=== PATIENT | male | born 1980 | race Caucasian/White ===

== ENCOUNTER 2020-08-15 15:21 | Outpatient (CLI) | payer BC, SELFPAY ==
[2020-08-15 15:47] LABS: Basophils Percent Auto 0.5 % (0.2-1.2); Eosinophils Percent Auto 0.5 % (0-4.4); Hematocrit 43.8 % (42.0-52.0); Hemoglobin 13.9 g/dL (14.0-18.0); Immature Granulocyte Absolute 0.03 K/mm3 (0.00-0.031); Immature Granulocyte Percent A 0.4 % (0-0.5); Lymphocytes Absolute Auto 1.62 K/mm3 (0.9-3.2); Lymphocytes Percent Auto 20.3 % (18.3-44.2); Mean Corpuscular HGB Conc 31.7 g/dl (32-36); Mean Corpuscular Hemoglobin 27.4 pg (26-34); Mean Corpuscular Volume 86.4 fl (80-100); Mean Platelet Volume 10.7 fl (7.4-10.4); Monocytes Absolute Auto 0.4 K/mm3 (0.1-0.6); Monocytes Percent Auto 5.1 % (2.6-8.5); Neutrophils Absolute Auto 5.8 K/mm3 (1.3-6.7); Neutrophils Percent Auto 73.2 % (45.5-73.1); Platelet Count Result 189 k/mm3 (150-375); Red Blood Count 5.07 M/mm3 (4.6-6.20); Red Cell Distribution Width 14.3 % (11.5-14.5)
[2020-08-15 15:59] LABS: Hemoglobin A1C 13.1 % (<5.7)
[2020-08-15 16:27] LABS: Alanine Aminotransferase 34 U/L (4-50); Albumin Level 4.4 g/dL (3.5-5.1); Alkaline Phosphatase 129 U/L (38-126); Anion Gap 17 mmol/L (8-16); Aspartate Amino Transferase 37 U/L (17-59); Bilirubin,Total 0.8 mg/dL (0.2-1.3); Blood Urea Nitrogen 16 mg/dL (9-20); Calcium 9.7 mg/dL (8.4-10.2); Carbon Dioxide 19 mmol/L (22-30); Chloride 92 mmol/L (98-107); Estimated Glomerular Filt Rate > 60; Glucose 773 mg/dL (75-110); Potassium 4.7 mmol/L (3.4-5.0); Sodium 128 mmol/L (137-145)
== END 2020-08-15 15:22 | disposition home or self-care (01) ==
LOC: ANHLAB 15:22
PROVIDERS: PCP Family Medicine; Visit Provider Nurse Practitioner Family
DX: R35.0 Frequency of micturition (principal); R63.8 Other symptoms and signs concerning food and fluid intake; R81 Glycosuria; I10 Essential (primary) hypertension
CPT/HCPCS: 36415; 80053; 83036; 84443; 85025

== ENCOUNTER 2023-07-27 18:34 | Inpatient (IN) | payer BC, SELFPAY ==
[2023-07-27] VITALS (9 sets, daily range): BP systolic 92–116; BP diastolic 40–74; PULSE 80–92; RESP 16–24; TEMP 36.6; O2SAT 99–100
--- NOTE | ~2023-07-27 | US_ITS ---
Limited Abdominal Sonogram: Real-time sonographic imaging of the right upper quadrant was performed. Clinical History: Pancreatitis Findings: The liver appears echogenic, with no evidence of mass lesion or bile duct dilatation. Main portal vein demonstrates normal direction of flow. The gallbladder is well distended, and appears no rmal with no evidence of gallstone or wall thickening. The common bile duct measures 7 mm. The visua lized pancreas, aorta, and IVC are unremarkable. Impression: Diffuse fatty infiltration of the liver. Reviewed, dictated and finalized at location M. R RESOURCE ENGINEER Impression: Diffuse fatty infiltration of the liver.
--- NOTE | ~2023-07-27 | US_ITS ---
Renal-Bladder ultrasound Clinical History: Renal failure Technique: Real-time sonographic imaging of the kidneys and urinary bladder was performed. Findings: The right kidney measures 10.2 cm in length and the left kidney measures 10.1 cm. There is no hydronephrosis or renal calculus identified. Renal cortical echogenicity is within normal limits. No renal mass lesion is identified. The urinary bladder is collapsed around a Arthur catheter. Impression: Unremarkable ultrasound of the kidneys. Collapsed urinary bladder limits evaluation. Reviewed, dictated and finalized at location M. [employer] Impression: Unremarkable ultrasound of the kidneys. Collapsed urinary bladder limits evaluation.
--- NOTE | ~2023-07-27 | XR_ITS ---
EXAMINATION: XR chest 1V portable Exam Date/Time: 07/27/2023 20:27 POWER PLANT TECHNICIAN HISTORY: sob Comparison: None. RESULT: Lines, tubes, and devices: None. Lungs and pleura: Clear. Cardiomediastinal silhouette: Unremarkable. Other: No acute osseous or upper abdominal finding. IMPRESSION: No acute cardiopulmonary process. Reviewed, dictated and finalized at location K. R PLANT TECHNICIAN
--- NOTE | ~2023-07-27 | CT_ITS ---
EXAMINATION: CT abdomen pelvis wo con DATE: 07/27/2023 21:44 INDICATION: lower abd pain, leukocytosis, arf, diarrhea TECHNIQUE: Computed tomography (CT) of the abdomen and pelvis was performed without intravenous contr ast. Automated exposure control and iterative reconstruction technique were employed. The dose-length product was 1606.51 mGy-cm. COMPARISON: None. FINDINGS: Lower thorax: Unremarkable Liver: Normal. Biliary/Gallbladder: Dilated gallbladder with slightly hyperdense content, no visible stones. Minimal surrounding inflammatory change. No bile duct dilation. Pancreas: Mild inflammatory change surrounding the pancreas. Spleen: Normal. Adrenals:No mass. Kidneys: Punctate nonobstructing bilateral calculi. No suspicious mass, obstructing stone, or hydrone phrosis. GI tract: No small or large bowel dilation. Appendix not confidently visualized, likely surgically ab sent. Mesentery/Peritoneum: No ascites, mass, or free air. Retroperitoneum: No mass. Pelvis: Pelvic organs are within normal limits. Soft Tissues: Soft tissues and body wall unremarkable. Bones: No acute osseous finding. IMPRESSION: Gallbladder hydrops. Peripancreatic inflammation, may represent pancreatitis in the appropriate clinical context. Reviewed, dictated and finalized at location K. GER SPANISH IMPRESSION: Gallbladder hydrops. Peripancreatic inflammation, may represent pancreatitis in the appropriate clin ical context.
[2023-07-27 19:57] LABS: Basophils Percent Auto 0.3 % (0.2-1.2); Eosinophils Percent Auto 0.1 % (0-4.4); Hematocrit 42.8 % (42.0-52.0); Hemoglobin 12.3 g/dL (14.0-18.0); Immature Granulocyte Absolute 0.17 K/mm3 (0.00-0.031); Immature Granulocyte Percent A 1.1 % (0-0.5); Lymphocytes Percent Auto 8.7 % (18.3-44.2); Mean Corpuscular HGB Conc 28.7 g/dl (32-36); Mean Corpuscular Hemoglobin 25.8 pg (26-34); Mean Corpuscular Volume 89.7 fl (80-100); Mean Platelet Volume 9.9 fl (7.4-10.4); Monocytes Percent Auto 6.9 % (2.6-8.5); Neutrophils Absolute Auto 12.3 K/mm3 (1.3-6.7); Neutrophils Percent Auto 82.9 % (45.5-73.1); Nucleated Red Blood Cells Perc 0.3 % (0.0-0.2); Platelet Count Result 267 k/mm3 (150-375); Red Blood Count 4.77 M/mm3 (4.6-6.20); Red Cell Distribution Width 16.2 % (11.5-14.5); White Blood Count 14.9 K/mm3 (4.5-10.0)
[2023-07-27 20:13] LABS: Alanine Aminotransferase 27 U/L (6-50); Albumin Level 3.9 g/dL (3.5-5.1); Alkaline Phosphatase 97 U/L (38-126); Aspartate Amino Transferase 37 U/L (17-59); Bilirubin,Total 0.5 mg/dL (0.2-1.3); Blood Urea Nitrogen 86 mg/dL (9-20); Calcium 8.4 mg/dL (8.4-10.2); Carbon Dioxide < 5 mmol/L (22-30); Chloride 105 mmol/L (98-107); Estimated CRCL calculation 18 ml/min; Estimated Glomerular Filt Rate 8; Glucose 196 mg/dL (65-110); Potassium 6.6 mmol/L (3.4-5.0); Sodium 137 mmol/L (137-145)
[2023-07-27 20:20] LABS: Burr Cells 1+ (NORMAL); Large Platelets Present; Platelet Clumps Present; Platelet Estimate Adequate (Adequate); Schistocytes None Seen (NORMAL)
--- NOTE | 2023-07-27 20:20 | ED.NAVMDI ---
HPI - Nausea/Vomiting/Diarrhea General Chief complaint: Nausea/Vomiting/Diarrhea Stated complaint: WEAKNESS Time Seen by Provider: 07/27/23 19:44 Source: patient Mode of arrival: ambulatory Limitations: no limitations History of Present Illness HPI Narrative: Patient is a 42 y/o male who presents to the ED with c/o diarrhea. Reports having persistent diarrhea since Friday. He reported having multiple episodes per day Friday and Friday, reports last episode today around 1pm. Denies rectal bleeding or melena. He states he feels very weak and dehydrated. He also reports lower abdominal pain, nausea, decreased appetite, shortness of breath, heavy breathing, oliguria. Denies known fevers. Denies chest pain. at bedside reports patient has been ozempic for the last 1 month for weight loss. Switch to Mounjaro last week. He does have Hx of DM, BG's have been around 160s the last couple days. Related Data Home Medications Medication Instructions Recorded Confirmed lisinopril 40 mg tablet 45 mg PO DAILY 07/28/23 07/28/23 Allergies Allergy/AdvReac Type Severity Reaction Status Date / Time No Known Allergies Allergy Mild Unverified 05/27/23 14:40 Review of Systems Review of Systems: CONSTITUTIONAL: Denies fever, chills, or sweats. ENT: Denies rhinorrhea, congestion, sore throat. CARDIOVASCULAR: Denies chest pain. RESPIRATORY: See HPI. GASTROINTESTINAL: See HPI. GENITOURINARY: Denies dysuria or hematuria. MUSCULOSKELETAL: Denies back pain, joint pain, or myalgia. All systems reviewed & are unremarkable except as noted in HPI and below PMFSH Family History Family History Father Hypertension Mother Hypertension Social History Social History Smoking status: Never smoker Second hand tobacco smoke exposure: No Alcohol intake: former Substance use: never Substance use type: does not use Lack of Transportation: No Lack of Food: Never True Current Housing: I Have Housing Concerned About Future Housing: No Difficulty Paying Gas/Electric Bills: No Difficulty Paying for Meds: No Currently Unemployed: No Education: High School Diploma/GED Difficulty w/ Childcare or Family Care: No Living arrangements: with family Occupation/Education: occupation Gender identity (if verbalized by the patient): Male Spiritual care concerns: No Exam Narrative: GENERAL: Ill/toxic/uncomfortable appearing, morbidly obese with BMI of 54.9. HEAD: Normocephalic, atraumatic. ENT: MMs profoundly dry. NECK: Supple. No adenopathy, no masses. RESPIRATORY: Airway patent, respirations tachypneic and shallow. Clear to auscultation bilaterally, no rales, rhonchi, wheezing. No focal lung sounds. CARDIOVASCULAR: Borderline tachycardic with regular rhythm without murmurs, rubs, or gallops. Peripheral pulses 2+ and equal bilaterally. ABDOMINAL: Soft, tenderness across lower abdomen, nondistended, no hepatosplenomegaly. Normoactive BS. MUSCULOSKELETAL: Moves all extremities. Strength/ROM intact without gross deformities. No lower extremity edema. SKIN: Warm, dry, normal color. No rashes. NEURO: A&O X3. Able to answer questions but does appear weak and fatigued. Speech clear. Cranial nerves II-XII grossly intact. No ataxic movements. PSYCHIATRIC: Appropriate mood and affect. Normal interaction. Course Vital Signs Vital signs: Vital Signs Temperature 97.9 F 07/27/23 18:35 Pulse Rate 92 07/27/23 18:35 Respiratory Rate 24 H 07/27/23 18:35 Blood Pressure 116/57 L 07/27/23 18:35 Pulse Oximetry 100 07/27/23 18:35 Oxygen Delivery Room Air 07/27/23 18:35 Temperature 97.9 F 07/27/23 18:35 Pulse Rate 96 07/28/23 02:00 Respiratory Rate 19 07/28/23 02:00 Blood Pressure 107/62 07/28/23 02:00 Pulse Oximetry 100 07/28/23 02:00 Oxygen Delivery Room Air 07/27/23
--- NOTE | 2023-07-27 20:22 | ECG_ITS ---
Measurements Intervals [place] Rate: 81 P: 49 ID: [id number] QRS: -1 QRSD: 124 T: 37 QT: 394 QTc: 459 Interpretive Statements SINUS RHYTHM WITH FIRST DEGREE AV BLOCK DELAYED PRECORDIAL R/S TRANSITION CANNOT RULE OUT SEPTAL INFARCT, AGE INDETERMINATE BORDERLINE ECG NO PREVIOUS ECG AVAILABLE FOR COMPARISON Electronically Signed On 07-28-2023 6:23:37 JACK PRIZER by Blayne Spring D.O.
[2023-07-27 20:31] LABS: Appearance Urine Turbid (Clear); Bacteria Urine None Seen /hpf; Bilirubin Urine Negative (Negative); Blood Urine 3+ (Negative); Calcium Oxalate Crystals Urine Present /hpf; Color Urine Yellow (Yellow); Glucose Urine UA Negative (Negative); Hyaline Casts Urine Present /lpf; Ketones Urine Negative (Negative); Leukocyte Esterase Ur 2+ LEU/UL (Negative); Need Manual Microscopic Reviewed; Nitrate Urine Negative (Negative); Non Pathogenic Casts >20; Protein Urine 2+ mg/dL (Negative); RBC Urine 21-50 /hpf (0-2); Squamous Epithelial Cell Urine Moderate /hpf (Few); Urobilinogen Urine 0.2 mg/dL (<2.0); WBC Clumps Urine Present /HPF; WBC Urine >100 /hpf; White Blood Cell Casts Urine Present /lpf
[2023-07-27 20:34] LABS: Add Urine Microscopic? YES
[2023-07-27] MEDS: DEXTROSE 50% 25 GM/50 ML SYRINGE IV PUSH (20:36)
[2023-07-27 20:39] LABS: Magnesium 3.2 mg/dL (1.6-2.3)
[2023-07-27] MEDS: INSULIN HUMAN REGULAR (*BKC) 100 UNITS/ML 10 UNITS IV PUSH (20:41)
[2023-07-27] MEDS: CALCIUM GLUCONATE 1,000 MG/10 ML VIAL 1000 MG IV PUSH (20:45)
[2023-07-27] MEDS: SODIUM CHLORIDE 0.9% IV 1,000 ML 999 ML IV CONT ×3 (20:58→22:37)
[2023-07-27 21:12] LABS: NT Pro B Type Natriuretic Pept 860 pg/mL (19.9-100)
[2023-07-27 21:12] LABS: Alveolar/Arterial O2 Gradient 9.9 mmHg; Carboxyhemoglobin 0.6 % THb (0-2.0); Fractional Inspired Oxygen 21 %; HCO3 ABG 3.8 mEq/l (22.0-26.0); Methemoglobin ABG 0.1 %THb (0-1.5); Oxygen Content ABG 17.4 %vol (16.0-22.0); Oxygen Saturation ABG 95.4 % (95.0-100.0); PO2 ABG 118.2 mmHg (80.0-100.0); PO2 FiO2 Ratio Arterial Blood 5.63 %; Reduced Hemoglobin 2.3 %THb (0-5.0); Total Hemoglobin 12.6 g/dL (12.0-18.0)
[2023-07-27 21:14] LABS: Lipase 4329 U/L (23-300)
[2023-07-27 21:14] LABS: Device ROOM AIR; Modified Allen's Test Pass; PCO2 ABG 18.1 mmHg (35.0-45.0); Site Drawn RIGHT RADIAL; pH ABG 6.941 (7.350-7.450)
[2023-07-27 21:27] LABS: Lactic Acid Reflex 0.9 mmol/L (0.7-2.0)
--- NOTE | 2023-07-27 21:38 | PC.NURSE ---
Pt to CT at this time.
[2023-07-27 22:35] LABS: Glucose Point of Care 170 mg/dl (65-105)
[2023-07-27 22:45] LABS: Influenza A QL RT-PCR Negative (Negative); Influenza B QL RT-PCR Negative (Negative); SARS-CoV-2 RNA PCR Positive (Negative)
--- NOTE | 2023-07-27 23:09 | PC.NURSE ---
Pt is a hard stick, multiple attempts for blood cultures by this RN and tech. Phlebotomy called.
[2023-07-27] MEDS: SODIUM BICARBONATE 8.4% 50 MEQ/50 ML SYRINGE IV PUSH ×2 (23:44)
[2023-07-27] MEDS: cefTRIAXone 2 GM/NS 100 ML 2 GM/100 ML BAG IVPB (23:50)
--- NOTE | 2023-07-27 23:55 | PC.NURSE ---
Received Bicarb drip from pharmacy and bag was punctured in tube system. Contacted Renetta in pharmacy to acquire new bag.
[2023-07-28] VITALS (16 sets, daily range): BP systolic 93–124; BP diastolic 46–73; PULSE 88–108; RESP 15–24; TEMP 36.4–37.3; O2SAT 96–100; BMI 55.6
[2023-07-28 00:11] LABS: INR 1.3; Partial Thromboplastin Time 22.6 SECONDS (22.3-36.8); Prothrombin Time 17.3 Seconds (11.1-14.7)
[2023-07-28] MEDS: metroNIDAZOLE 500 MG/ISO 100ML 500 MG/100 ML BAG 100 MG IVPB ×4 (00:18→23:11)
[2023-07-28] MEDS: SODIUM BICARBONATE 8.4% 150 MEQ in WATER, STERILE FOR INJECTION 950 ML 125 MEQ IV CONT ×3 (00:19→18:40)
[2023-07-28 00:23] LABS: Blood Urea Nitrogen 84 mg/dL (9-20); Calcium 7.6 mg/dL (8.4-10.2); Carbon Dioxide < 5 mmol/L (22-30); Chloride 109 mmol/L (98-107); Estimated CRCL calculation 19 ml/min; Estimated Glomerular Filt Rate 8; Glucose 169 mg/dL (65-110); Sodium 137 mmol/L (137-145); Triglycerides 374 mg/dL (<150)
[2023-07-28 00:30] LABS: Potassium 6.7 mmol/L (3.4-5.0)
[2023-07-28 01:02] LABS: Troponin I 0.183 ng/mL (0.000-0.034)
[2023-07-28] MEDS: ALBUTEROL SULFATE NEB 2.5 MG/3 ML INH 10 MG INHALATION (01:12)
--- NOTE | 2023-07-28 01:29 | ADMGEN ---
This patient, Bucky Flynn, was admitted to Intensive Care Unit-7. Patient/family oriented to hospital policies and general routines including ID bracelet, bed and alarms, visiting hours, pain management, procedures, bathroom and other care routines, personal items, smoking policy, room service/diet, and visiting hours. Information on how to activate the Rapid Response Team has been discussed. Patient/Family are encouraged to report perceived risks to care and to ask questions if they do not understand what they are told or what they should do.
[2023-07-28] MEDS: CALCIUM GLUC 1,000 MG/NS 50 ML 1,000 MG/50 ML BAG 100 MG IVPB (01:33)
[2023-07-28] MEDS: DEXTROSE 50% 25 GM/50 ML SYRINGE IV PUSH (01:34)
[2023-07-28] MEDS: SODIUM BICARBONATE 8.4% 50 MEQ/50 ML SYRINGE 100 MEQ IV PUSH ×2 (01:34→08:08)
[2023-07-28] MEDS: INSULIN HUMAN REGULAR (*BKC) 100 UNITS/ML 10 UNITS IV PUSH (01:36)
--- NOTE | 2023-07-28 01:56 | PM.IMHP ---
H&P: HPI History of Present Illness Date/Time: 07/28/23 01:15 Chief Complaint: Diarrhea for 2 days Narrative: 42-year-old male with a past medical history of morbid obesity, type 2 diabetes, GERD, essential hypertension and hypertriglyceridemia who presented to the ER with 2 days of diarrhea. Patient reports that he started on Mounjaro 2 weeks ago. He was due to re-dose himself on Friday but did not give himself a dose due to already having diarrhea. He reports that he did not have diarrhea the entire 1st week in only developed on the day he was supposed to give his 2nd dose. He reports numerous episodes of watery diarrhea on Friday and Friday. His last bowel movement was around 13:00 on Friday. He has noticed decreased urine output in is only voided 3 times a day 2 of which were after he had already received IV fluids in the ER. He denies any recent travel. He denies any recent antibiotic use. He has been having generalized abdominal pain. He denies any black or bloody stools. He has been having chills with subjective fevers. He reports absolutely no vomiting but some severe nausea. He has biggest complaint at this time is that his mouth is dry and he wants something to drink. He has been lightheaded and feeling weak. Patient reports that he had been prescribed Ozempic last month but never got it as they were out of supply and was switched to Mounjaro. Review of Systems Review of Systems: 12 systems were reviewed with pertinent positives and negatives per HPI. Except as documented in the HPI, all other systems were reviewed and are negative. He denies history of snoring. He has never been tested for sleep apnea. [facility] Past Medical History Medical History (Updated 07/28/23 @ 05:42 by Ирина Cai DO) Essential hypertension Hyperlipemia Morbid obesity with BMI of 50.0-59.9, adult Type 2 diabetes mellitus Surgical History Surgical History (Updated 07/28/23 @ 05:24 by Ирина Cai DO) No history of previous surgery Family History Family History (Updated 07/28/23 @ 05:27 by Ирина Cai DO) Father Hypertension Mother Hypertension Lymphoma Social History Social History (Updated 07/28/23 @ 05:28 by Ирина Cai DO) Social History: The patient lives with his of 19 years. They have 2 sons below the age of 18. He drinks alcohol on occasion in in moderation. He is a lifelong nonsmoker. He denies illicit substance use. 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 Code status: Full code Surrogate decision maker: Smoking status: Never smoker Second hand tobacco smoke exposure: No Alcohol intake: former Substance use: never Substance use type: does not use Lack of Transportation: No Lack of Food: Never True Current Housing: I Have Housing Concerned About Future Housing: No Difficulty Paying Gas/Electric Bills: No Difficulty Paying for Meds: No Currently Unemployed: No Education: High School Diploma/GED Difficulty w/ Childcare or Family Care: No Living arrangements: with family Occupation/Education: occupation Gender identity (if verbalized by the patient): Male Spiritual care concerns: No Meds Home Medications and Allergies Home Medications Medication Instructions Recorded Confirmed Type blood-glucose meter (Blood Glucose #1 ea 08/15/20 07/28/23 Rx Monitoring kit) lancets #100 ea 08/16/20 07/28/23 Rx aspirin 81 mg tablet,delayed 81 mg PO DAILY #90 tabs 03/29/21 07/28/23 Rx release blood sugar diagnostic (Blood #100 ea 10/28/22 07/28/23 Rx Glucose Test strips) omega 9-kir-cbi-fish oil 100 2 cap PO QHS #60 caps 11/08/22 07/28/23 Rx mg-160 mg-1,000 mg capsule (Fish Oil) amlodipine 10 mg tablet 10 mg PO DAILY #90 tabs 12/09/22 07/28/23 Rx metformin 1,000 mg tablet 2,000 mg PO QPM #180 tabs 01/07/23 07/28/23 Rx hydrochlorothiazide 25 mg tablet 25 mg PO DAILY #90 tabs 04/15/23 07/28/23 Rx omep
[2023-07-28 02:10] LABS: Glucose Point of Care 143 mg/dl (65-105)
[2023-07-28 02:10] LABS: Glucose Point of Care 152 mg/dl (65-105)
[2023-07-28] MEDS: SODIUM ZIRCONIUM CYCLOSILICATE 10 GM POWD.PACK PO (03:15)
[2023-07-28 04:31] LABS: Troponin I 0.206 ng/mL (0.000-0.034)
[2023-07-28 06:49] LABS: Basophils Percent Auto 0.1 % (0.2-1.2); Eosinophils Percent Auto 0.3 % (0-4.4); Hematocrit 34.3 % (42.0-52.0); Hemoglobin 10.2 g/dL (14.0-18.0); Immature Granulocyte Absolute 0.06 K/mm3 (0.00-0.031); Immature Granulocyte Percent A 0.6 % (0-0.5); Lymphocytes Percent Auto 9.4 % (18.3-44.2); Mean Corpuscular HGB Conc 29.7 g/dl (32-36); Mean Corpuscular Hemoglobin 26.2 pg (26-34); Mean Corpuscular Volume 87.9 fl (80-100); Mean Platelet Volume 9.7 fl (7.4-10.4); Monocytes Absolute Auto 0.6 K/mm3 (0.1-0.6); Monocytes Percent Auto 5.7 % (2.6-8.5); Neutrophils Absolute Auto 8.1 K/mm3 (1.3-6.7); Neutrophils Percent Auto 83.9 % (45.5-73.1); Nucleated Red Blood Cells Perc 0.3 % (0.0-0.2); Platelet Count Result 202 k/mm3 (150-375); Red Cell Distribution Width 16.2 % (11.5-14.5); White Blood Count 9.6 K/mm3 (4.5-10.0)
[2023-07-28 07:01] LABS: Lactate Dehydrogenase 243 U/L (120-246)
[2023-07-28 07:10] LABS: Albumin Level 3.2 g/dL (3.5-5.1); Blood Urea Nitrogen 87 mg/dL (9-20); Calcium 7.4 mg/dL (8.4-10.2); Carbon Dioxide < 5 mmol/L (22-30); Chloride 109 mmol/L (98-107); Estimated CRCL calculation 20 ml/min; Estimated Glomerular Filt Rate 8; Glucose 137 mg/dL (65-110); Phosphorus 10.3 mg/dL (2.5-4.5); Potassium 5.1 mmol/L (3.4-5.0); Sodium 141 mmol/L (137-145)
[2023-07-28 07:47] LABS: Hepatitis B Surface Antigen Negative (Negative)
[2023-07-28 07:52] LABS: HAV RESULT Negative (Negative); Hepatitis B Core IgM Result Negative (Negative)
[2023-07-28 08:04] LABS: Hepatitis C Virus Antibody Negative (Negative)
[2023-07-28] MEDS: SODIUM CHLORIDE 0.9% IV 500 ML IV CONT ×3 (08:08→14:19)
[2023-07-28] MEDS: PANTOPRAZOLE SODIUM IV 40 MG VIAL IV PUSH (08:09)
[2023-07-28] MEDS: HEPARIN SODIUM 5,000 UNITS/ML VIAL 5000 UNITS SUB-Q ×2 (08:09→20:04)
[2023-07-28] MEDS: ACETAMINOPHEN 325 MG TABLET 650 MG PO ×2 (08:09→20:17)
[2023-07-28 08:12] LABS: Burr Cells 1+ (NORMAL); Platelet Estimate Adequate (Adequate); Schistocytes None Seen (NORMAL)
--- NOTE | 2023-07-28 09:10 | WPDCNINT ---
Assessment and Plan Assessment and plan (1) Acute renal failure: Qualifiers: Acute renal failure type: unspecified Qualified Code(s): N17.9 - Acute kidney failure, unspecified Code(s): N17.9 - Acute kidney failure, unspecified Status: Acute Assessment and Plan: Patient presented with profuse diarrhea after taking Mounjaro x1. He stated he had persistent diarrhea for over 2 days. [place] weak, dehydrated, decreased p.o. intake, decreased urination -in the ER patient was found to be hyperkalemic with a potassium of 6.7, CO2 of<5, creatinine of 7.50 (normal baseline 1.45-1.63) -patient was given 3 L IV fluids, started on bicarb infusion, - additional IV fluids given in the ICU this morning -received injection IV push -creatinine of 7.50 on admission -consulted nephrology, -continue to monitor renal function, electrolytes and urine output (2) Metabolic acidosis: Code(s): E87.20 - Acidosis, unspecified Status: Acute Assessment and Plan: Severe metabolic acidosis, likely related to diarrhea and loss of bicarb -currently on bicarb infusion -await Nephrology recommendations (3) Urinary tract infection: Qualifiers: Hematuria presence: with hematuria Urinary tract infection type: acute cystitis Qualified Code(s): N30.01 - Acute cystitis with hematuria Code(s): N39.0 - Urinary tract infection, site not specified Status: Acute Assessment and Plan: UTI, patient started on ceftriaxone, urine cultures have been obtained and pending (4) Diarrhea: Qualifiers: Diarrhea type: unspecified type Qualified Code(s): R19.7 - Diarrhea, unspecified Code(s): R19.7 - Diarrhea, unspecified Status: Acute Assessment and Plan: Diarrhea could be multifactorial, patient states he did not eat anything from outside on different level of causes diarrhea. The thing that he took was Mounjaro, which is known to cause pancreatitis, nausea, diarrhea, vomiting, increase in lipase, acute kidney injury -continue bicarb infusion as patient has significant acidosis (5) Acute pancreatitis: Qualifiers: Acute pancreatitis complication: unspecified Pancreatitis type: unspecified pancreatitis type Qualified Code(s): K85.90 - Acute pancreatitis without necrosis or infection, unspecified Code(s): K85.90 - Acute pancreatitis without necrosis or infection, unspecified Status: Acute Assessment and Plan: Elevated lipase level peripancreatic inflammation on CT scan which could be caused by Mounjaro. -continue IV fluid hydration -additional IV fluid bolus given this morning, may repeat 07/27/2023 CT scan of the abdomen and pelvis showed: Gallbladder hydrops. Peripancreatic inflammation, may represent pancreatitis in the appropriate clinical context. (6) COVID-19: Code(s): U07.1 - COVID-19 Status: Acute Assessment and Plan: Patient was tested positive was COVID-19, currently on room air, states he was not exposed to any other people that he knows have COVID-19 -patient stated he only received 1 dose of COVID vaccine (7) Hyperkalemia: Code(s): E87.5 - Hyperkalemia Status: Acute Assessment and Plan: Hyperkalemia likely related to acute kidney injury, treated with insulin, D50, bicarb, Lokelma -potassium levels improved, will continue to monitor Plan DVT prophylaxis: Heparin subQ Stress ulcer prophylaxis: Proton Nutrition: Clear liquid diet Code Status: Full code Critical Care Time Spent: 50 minutes Discussed with patient and updated with his condition and plan of care. I explained to him that he has severe metabolic acidosis, pancreatitis, acute kidney injury. He requests of pain medications like told him the will be able able to give him a small dose of pain medication due to his acute kidney injury. He is agreeable Due to a high probability of clinically significant, life threatening deter
--- NOTE | 2023-07-28 09:35 | P.CONNP_ITS ---
Assessment and Plan Assessment and plan (1) LEMUEL (acute kidney injury): Code(s): N17.9 - Acute kidney failure, unspecified Status: Acute Assessment and Plan: * presumably due to volume depletion/dehydration from diarrhea (from Mounjaro use) * suspect may have progressed to ATN * likely worsened by use of CONCHITA-I, HCTZ, and metformin * s/p aggressive IVF resuscitation * transitioned to bicarb gtt given severe acidosis * continue IVFs as respiratory status allows * CT imaging without obstruction * follow-up on urine studies * follow repeat labs and UOP (2) Stage 3a chronic kidney disease: Code(s): N18.31 - Chronic kidney disease, stage 3a Status: Chronic Assessment and Plan: * baseline creatinine seems to run 1.4 - 1.6mg/dl * presumably due to hypertension and diabetes (3) Hyperkalemia: Code(s): E87.5 - Hyperkalemia Status: Acute Assessment and Plan: * due to LEMUEL/ARF along with acidosis * s/p medical management * follow repeat potassium levels (4) Metabolic acidosis: Code(s): E87.20 - Acidosis, unspecified Status: Acute Assessment and Plan: * quite severe on presentation * presumably precipitated by GI loss/diarrhea on top of LEMUEL/ARF and possibly metformin use * agree with bicarbonate gtt * follow repeat labs (5) Diarrhea: Qualifiers: Diarrhea type: unspecified type Qualified Code(s): R19.7 - Diarrhea, unspecified Code(s): R19.7 - Diarrhea, unspecified Status: Acute Assessment and Plan: * etiology? * no new outside foods * did recently start Mounjaro... * continue supportive therapy (6) Urinary tract infection: Qualifiers: Hematuria presence: with hematuria Urinary tract infection type: acute cystitis Qualified Code(s): N30.01 - Acute cystitis with hematuria Code(s): N39.0 - Urinary tract infection, site not specified Status: Acute Assessment and Plan: * UA highly suggestive on admission * on antibiotics * follow-up on urine culture (7) Acute pancreatitis: Qualifiers: Acute pancreatitis complication: unspecified Pancreatitis type: unspecified pancreatitis type Qualified Code(s): K85.90 - Acute pancreatitis without necrosis or infection, unspecified Code(s): K85.90 - Acute pancreatitis without necrosis or infection, unspecified Status: Acute Assessment and Plan: * elevated lipase noted * CT with peripancreatic inflammation (due to Mounjaro?) * continue IVFs as tolerated (8) COVID-19: Code(s): U07.1 - COVID-19 Status: Acute Assessment and Plan: * tested positive for COVID-19 * however on room air * supportive therapy for now Discussed case with Dr. Michele. Long extensive discussion (greater than 20 minutes) with the patient regarding his significant/severe renal dysfunction and my concerns that if his kidney function does not improve with ongoing supportive therapy, he remains at risk for needing renal replacement therapy/dialysis. He appeared to voice understanding to this possibility. I will continue follow the patient with you while he remains hospitalized and make further recommendations as needed. Thank you for allowing me to participate care this patient. History of Present Illness Reason for Consult Consult date: 07/28/23 Reason for consult: acute renal failure (on chronic kidney disease) Chief Complaint Chief complaint: ARF, Pancreatitis, Metabolic Acidosi
--- NOTE | 2023-07-28 09:35 | PM.CNNEP ---
Assessment and Plan Assessment and plan (1) LEMUEL (acute kidney injury): Code(s): N17.9 - Acute kidney failure, unspecified Status: Acute Assessment and Plan: presumably due to volume depletion/dehydration from diarrhea (from Mounjaro use) suspect may have progressed to ATN likely worsened by use of CONCHITA-I, HCTZ, and metformin s/p aggressive IVF resuscitation transitioned to bicarb gtt given severe acidosis continue IVFs as respiratory status allows CT imaging without obstruction follow-up on urine studies follow repeat labs and UOP (2) Stage 3a chronic kidney disease: Code(s): N18.31 - Chronic kidney disease, stage 3a Status: Chronic Assessment and Plan: baseline creatinine seems to run 1.4 - 1.6mg/dl presumably due to hypertension and diabetes (3) Hyperkalemia: Code(s): E87.5 - Hyperkalemia Status: Acute Assessment and Plan: due to LEMUEL/ARF along with acidosis s/p medical management follow repeat potassium levels (4) Metabolic acidosis: Code(s): E87.20 - Acidosis, unspecified Status: Acute Assessment and Plan: quite severe on presentation presumably precipitated by GI loss/diarrhea on top of LEMUEL/ARF and possibly metformin use agree with bicarbonate gtt follow repeat labs (5) Diarrhea: Qualifiers: Diarrhea type: unspecified type Qualified Code(s): R19.7 - Diarrhea, unspecified Code(s): R19.7 - Diarrhea, unspecified Status: Acute Assessment and Plan: etiology? no new outside foods did recently start Mounjaro... continue supportive therapy (6) Urinary tract infection: Qualifiers: Hematuria presence: with hematuria Urinary tract infection type: acute cystitis Qualified Code(s): N30.01 - Acute cystitis with hematuria Code(s): N39.0 - Urinary tract infection, site not specified Status: Acute Assessment and Plan: UA highly suggestive on admission on antibiotics follow-up on urine culture (7) Acute pancreatitis: Qualifiers: Acute pancreatitis complication: unspecified Pancreatitis type: unspecified pancreatitis type Qualified Code(s): K85.90 - Acute pancreatitis without necrosis or infection, unspecified Code(s): K85.90 - Acute pancreatitis without necrosis or infection, unspecified Status: Acute Assessment and Plan: elevated lipase noted CT with peripancreatic inflammation (due to Mounjaro?) continue IVFs as tolerated (8) COVID-19: Code(s): U07.1 - COVID-19 Status: Acute Assessment and Plan: tested positive for COVID-19 however on room air supportive therapy for now Discussed case with Dr. Michele. Long extensive discussion (greater than 20 minutes) with the patient regarding his significant/severe renal dysfunction and my concerns that if his kidney function does not improve with ongoing supportive therapy, he remains at risk for needing renal replacement therapy/dialysis. He appeared to voice understanding to this possibility. I will continue follow the patient with you while he remains hospitalized and make further recommendations as needed. Thank you for allowing me to participate care this patient. History of Present Illness Reason for Consult Consult date: 07/28/23 Reason for consult: acute renal failure (on chronic kidney disease) Chief Complaint Chief complaint: ARF, Pancreatitis, Metabolic Acidosis, COVID, +Tro History of Present Illness Narrative: The patient is a 42-year-old male with a past medical history as outlined below who presented to [facility] Emergency Room with complaints of diarrhea. He reports the diarrhea started about 2 or 3 days ago and has been quite profuse and persisted. He denies any hematochezia or melena but states that he has been having so much diarrhea that he has gotten very weak. Associated symptoms include lower a
[2023-07-28] MEDS: HYDROmorphone HCL INJ (*CRX) 1 MG/ML SYR 0.5 MG IV PUSH ×2 (09:37→23:12)
[2023-07-28 10:23] LABS: Creatinine Urine 85.6 mg/dL
[2023-07-28 10:33] LABS: Sodium Urine Random 58 meq/L
[2023-07-28 11:37] LABS: Glucose Point of Care 135 mg/dl (65-105)
[2023-07-28 11:42] LABS: Glucose Point of Care 130 mg/dl (65-105)
[2023-07-28 13:14] LABS: Lipase 11659 U/L (23-300)
[2023-07-28 13:38] LABS: Anion Gap 26 mmol/L (8-16); Blood Urea Nitrogen 88 mg/dL (9-20); Calcium 6.8 mg/dL (8.4-10.2); Carbon Dioxide 8 mmol/L (22-30); Chloride 109 mmol/L (98-107); Estimated CRCL calculation 23 ml/min; Estimated Glomerular Filt Rate 10; Glucose 143 mg/dL (65-110); Potassium 3.9 mmol/L (3.4-5.0); Sodium 143 mmol/L (137-145)
[2023-07-28] MEDS: SODIUM BICARBONATE TAB 650 MG TABLET 1300 MG PO ×2 (14:35→17:06)
[2023-07-28 14:56] LABS: Creatinine Urine 69.5 mg/dL; Total Protein Urine Random 92 mg/dL; Ur Ttl Prot Creatinine Ratio 1.32 mg/mg (0-0.20); Urea Random Urine 331 MG/DL
[2023-07-28 15:01] LABS: Sodium Urine Random 66 meq/L
[2023-07-28 15:03] LABS: Eosinophil Urine None Seen % (None Seen); Urine Eos QC 2nd Tech Confirmed
[2023-07-28 17:40] LABS: Glucose Point of Care 147 mg/dl (65-105)
--- NOTE | 2023-07-28 18:47 | PM.IMPN ---
Progress Note: A&P Assessment and Plan (1) Acute renal failure: Qualifiers: Acute renal failure type: unspecified Qualified Code(s): N17.9 - Acute kidney failure, unspecified Code(s): N17.9 - Acute kidney failure, unspecified Status: Acute Assessment and Plan: Patient presented with complaints of diarrhea that was persistent for 2 days prior to admission. He was on Ozempic for 1 month for weight loss but change to Mounjaro last week. [place] weak, dehydrated with decreased p.o. intake and decreased urination. No bleeding In ER, found to be hyperkalemic (6.7), acidotic (CO2 of<5 and pH 6.94) and LEMUEL with creatinine of 7.5 (normal baseline 1.45-1.63) Patient was given 3 L IV fluids and started on bicarb infusion. Additional IV fluids given after admisison Nephrology consulted and appreciate their input UOP 0 recorded yesterday but 2L so far today. Cr better at 6.1 and acidosis improved. Continue IV Bicarb Continue to monitor renal function, electrolytes and urine output (2) Metabolic acidosis: Code(s): E87.20 - Acidosis, unspecified Status: Acute Assessment and Plan: Severe metabolic acidosis with ABG 6.94/18/118 on RA. Serum bicarb <5. [place] related to diarrhea and loss of bicarb. Diarrhea is a side effect of tirzepatide. Serum bicarb 8 Continue bicarb infusion (3) Urinary tract infection: Qualifiers: Hematuria presence: with hematuria Urinary tract infection type: acute cystitis Qualified Code(s): N30.01 - Acute cystitis with hematuria Code(s): N39.0 - Urinary tract infection, site not specified Status: Acute Assessment and Plan: UA noted and concerning for UTI. UCx collected and he was started on ceftriaxone UCx pending Continue ceftriaxone (4) Diarrhea: Qualifiers: Diarrhea type: unspecified type Qualified Code(s): R19.7 - Diarrhea, unspecified Code(s): R19.7 - Diarrhea, unspecified Status: Acute Assessment and Plan: Diarrhea could be multifactorial such as viral or medication or food borne. He hasn't eaten anything out of the norm He took Mounjaro last week which can cause pancreatitis, n/v, diarrhea and LEMUEL Diarrhea appears to be slowing As above. Monitor stool output (5) Acute pancreatitis: Qualifiers: Acute pancreatitis complication: unspecified Pancreatitis type: unspecified pancreatitis type Qualified Code(s): K85.90 - Acute pancreatitis without necrosis or infection, unspecified Code(s): K85.90 - Acute pancreatitis without necrosis or infection, unspecified Status: Acute Assessment and Plan: Elevated lipase to [address] scan showing mild inflammatory changes surrounding the pancreas TG 374. CT showing dilated GB with slightly hyperdense content but no visible stones. Consider sludge or GS pancreatitis but LFTs normal. Consider medications: tirzepatide Repeat Lipase 25889 Continue clear liquid diet. Check RUQ US Continue IV fluid hydration (6) COVID-19: Code(s): U07.1 - COVID-19 Status: Acute Assessment and Plan: Patient tested positive was COVID-19 on 07/27. He remains on room air. Patient does have risk factors (DM, morbid obesity) that puts him at risk for severe COVID. He only received 1 dose of the COVID vaccine in 2020(?) He could benefit from Remdesivir. Check CRP, ferritin. (7) Hyperkalemia: Code(s): E87.5 - Hyperkalemia Status: Acute Assessment and Plan: Patient noted to have hyperkalemia to 6.7 likely related to LEMUEL treated appropriately. Potassium normal now Follow (8) Type 2 diabetes mellitus: Code(s): E11.9 - Type 2 diabetes mellitus without complications Status: Acute Assessment and Plan: The patient's blood glucose was reviewed on 07/28 Glucose remains well controlled. Continue AccuCheks covering with sliding scale. Hypoglycemia protocol avai
[2023-07-28] MEDS: OMEGA 3 POLYUNSAT FATTY ACIDS 1 GM CAP 2 GM PO (20:03)
[2023-07-28] MEDS: cefTRIAXone 2 GM/NS 100 ML 2 GM/100 ML BAG IVPB (23:11)
[2023-07-28 23:25] LABS: Glucose Point of Care 122 mg/dl (65-105)
[2023-07-29] VITALS (13 sets, daily range): BP systolic 90–136; BP diastolic 50–83; PULSE 80–105; RESP 13–20; TEMP 36.6–36.8; O2SAT 90–100
[2023-07-29 04:44] LABS: Basophils Percent Auto 0.1 % (0.2-1.2); Eosinophils Percent Auto 0.3 % (0-4.4); Hemoglobin 9.3 g/dL (14.0-18.0); Immature Granulocyte Absolute 0.05 K/mm3 (0.00-0.031); Immature Granulocyte Percent A 0.6 % (0-0.5); Lymphocytes Absolute Auto 0.72 K/mm3 (0.9-3.2); Lymphocytes Percent Auto 9.2 % (18.3-44.2); Mean Corpuscular Hemoglobin 25.7 pg (26-34); Mean Corpuscular Volume 82.9 fl (80-100); Mean Platelet Volume 9.3 fl (7.4-10.4); Monocytes Absolute Auto 0.5 K/mm3 (0.1-0.6); Monocytes Percent Auto 6.6 % (2.6-8.5); Neutrophils Absolute Auto 6.5 K/mm3 (1.3-6.7); Neutrophils Percent Auto 83.2 % (45.5-73.1); Platelet Count Result 202 k/mm3 (150-375); Red Blood Count 3.62 M/mm3 (4.6-6.20); Red Cell Distribution Width 16.3 % (11.5-14.5); White Blood Count 7.8 K/mm3 (4.5-10.0)
[2023-07-29 04:53] LABS: Lactic Acid Reflex 0.9 mmol/L (0.7-2.0)
[2023-07-29 05:01] LABS: Alanine Aminotransferase 24 U/L (6-50); Albumin Level 3.2 g/dL (3.5-5.1); Alkaline Phosphatase 77 U/L (38-126); Anion Gap 23 mmol/L (8-16); Aspartate Amino Transferase 30 U/L (17-59); Bilirubin,Total 0.3 mg/dL (0.2-1.3); Blood Urea Nitrogen 83 mg/dL (9-20); CRP 7.1 mg/dL (<1.0); Calcium 6.4 mg/dL (8.4-10.2); Carbon Dioxide 12 mmol/L (22-30); Chloride 109 mmol/L (98-107); Creatine Kinase 112 U/L (55-170); Estimated CRCL calculation 31 ml/min; Estimated Glomerular Filt Rate 14; Glucose 124 mg/dL (65-110); Hemoglobin A1C 8.4 % (<5.7); Phosphorus 5.9 mg/dL (2.5-4.5); Potassium 2.8 mmol/L (3.4-5.0); Sodium 144 mmol/L (137-145)
[2023-07-29 05:18] LABS: Lipase 7607 U/L (23-300)
[2023-07-29] MEDS: SODIUM BICARBONATE 8.4% 150 MEQ in WATER, STERILE FOR INJECTION 950 ML IV CONT ×3 (05:19→22:00)
[2023-07-29] MEDS: metroNIDAZOLE 500 MG/ISO 100ML 500 MG/100 ML BAG 100 MG IVPB (05:19)
[2023-07-29] MEDS: CALCIUM GLUC 1,000 MG/NS 50 ML 1,000 MG/50 ML BAG 100 MG IVPB (05:36)
[2023-07-29] MEDS: POTASSIUM CHLORIDE INJ 40 MEQ in SODIUM CHLORIDE 0.9% IV 500 ML 130 MEQ IVPB ×2 (05:36→17:06)
[2023-07-29] MEDS: SODIUM BICARBONATE TAB 650 MG TABLET 1300 MG PO ×2 (08:33→17:03)
[2023-07-29] MEDS: POTASSIUM CHLORIDE 20 MEQ PACKET (FOR LIQUID) 40 MEQ PO (08:33)
[2023-07-29] MEDS: PANTOPRAZOLE SODIUM IV 40 MG VIAL IV PUSH (08:33)
[2023-07-29] MEDS: HEPARIN SODIUM 5,000 UNITS/ML VIAL 5000 UNITS SUB-Q ×2 (08:33→20:52)
[2023-07-29] MEDS: LIDOCAINE 5% PATCH 2 PATCH TRANSDERM (08:34)
[2023-07-29] MEDS: ACETAMINOPHEN 325 MG TABLET 650 MG PO ×3 (08:41→17:04)
--- NOTE | 2023-07-29 08:54 | WPDINTPN ---
Progress Note: A&P Assessment and Plan (1) Acute renal failure: Qualifiers: Acute renal failure type: unspecified Qualified Code(s): N17.9 - Acute kidney failure, unspecified Code(s): N17.9 - Acute kidney failure, unspecified Status: Acute Assessment and Plan: Patient presented with profuse diarrhea after taking G LP 1 agonist. Patient also tested positive for COVID 18. He stated he had persistent diarrhea for over 2 days. [place] weak, dehydrated, decreased p.o. intake, decreased urination -in the ER patient was found to be hyperkalemic with a potassium of 6.7, CO2 of<5, creatinine of 7.50 (normal baseline 1.45-1.63) -patient was given 3 L IV fluids, started on bicarb infusion, -renal ultrasound unremarkable Kidney function improving urine output improved Electrolytes are being replaced Nephrology following -continue to monitor renal function, electrolytes and urine output (2) Metabolic acidosis: Code(s): E87.20 - Acidosis, unspecified Status: Acute Assessment and Plan: Severe metabolic acidosis, likely related to diarrhea and loss of bicarb Improving -currently on bicarb infusion Nephrology following (3) Urinary tract infection: Qualifiers: Hematuria presence: with hematuria Urinary tract infection type: acute cystitis Qualified Code(s): N30.01 - Acute cystitis with hematuria Code(s): N39.0 - Urinary tract infection, site not specified Status: Acute Assessment and Plan: UTI, patient started on ceftriaxone, urine cultures have been obtained and pending (4) Diarrhea: Qualifiers: Diarrhea type: unspecified type Qualified Code(s): R19.7 - Diarrhea, unspecified Code(s): R19.7 - Diarrhea, unspecified Status: Acute Assessment and Plan: Diarrhea could be multifactorial, patient states he did not eat anything from outside on different level of causes diarrhea. He was on G LP 1 agonist which is known to cause pancreatitis, nausea, diarrhea, vomiting, increase in lipase, acute kidney injury Patient also had COVID infection which can lead to similar symptoms -continue bicarb infusion as patient has significant acidosis which is improving -DC Flagyl (5) Acute pancreatitis: Qualifiers: Acute pancreatitis complication: unspecified Pancreatitis type: unspecified pancreatitis type Qualified Code(s): K85.90 - Acute pancreatitis without necrosis or infection, unspecified Code(s): K85.90 - Acute pancreatitis without necrosis or infection, unspecified Status: Acute Assessment and Plan: Elevated lipase level peripancreatic inflammation on CT scan which could be caused by GLP 1 agonist medication -continue IV fluid hydration Symptoms have improved and he is tolerating clear liquid diet. 07/27/2023 CT scan of the abdomen and pelvis showed: Gallbladder hydrops. Peripancreatic inflammation, may represent pancreatitis in the appropriate clinical context. Right upper quadrant ultrasound was done and is pending at this time. Will review. His bilirubin and alkaline phosphatase is normal (6) COVID-19: Code(s): U07.1 - COVID-19 Status: Acute Assessment and Plan: Patient was tested positive was COVID-19, currently on room air, states he was not exposed to any other people that he knows have COVID-19 -patient stated he only received 1 dose of COVID vaccine His symptoms of nausea vomiting could have been secondary to COVID infection. No specific treatment for COVID at this time (7) Electrolyte abnormality: Code(s): E87.8 - Other disorders of electrolyte and fluid balance, not elsewhere classified Status: Acute Assessment and Plan: Hyperkalemia resolved Patient now hypokalemic and potassium replacement ordered. Repeat BMP ordered Plan DVT prophylaxis: Heparin subQ Stress ulcer prophylaxis: Protonix Nutrition: Clear liquid diet to be continued until ultrasound results of back
--- NOTE | 2023-07-29 09:46 | ADMGEN ---
This patient, Bucky Flynn, was admitted to Intensive Care Unit on 07/27/23. Today I reviewed and orientated the patient with the hospital policies and general routines including ID bracelet, bed and alarms, visiting hours, pain management, procedures, bathroom and other care routines, personal items, smoking policy, room service/diet, and visiting hours. Information on how to activate the Rapid Response Team has been discussed. Patient/Family are encouraged to report perceived risks to care and to ask questions if they do not understand what they are told or what they should do.
--- NOTE | 2023-07-29 10:03 | P.PNNP_ITS ---
Progress Note: A&P Assessment and Plan (1) LEMUEL (acute kidney injury): Code(s): N17.9 - Acute kidney failure, unspecified Status: Acute Assessment and Plan: * presumably due to volume depletion/dehydration from diarrhea (from Mounjaro use?) * suspect may have progressed to mild ATN upon presentation * likely worsened by use of CONCHITA-I, HCTZ, and metformin * s/p aggressive IVF resuscitation * on bicarb gtt given severe acidosis * continue IVFs as respiratory status allows * evaluation noted to date: * CT imaging without obstruction * urine electrolytes (FeUrea) just barely prerenal * urine eosinophils negative * CPK normal * follow repeat labs and UOP (2) Stage 3a chronic kidney disease: Code(s): N18.31 - Chronic kidney disease, stage 3a Status: Chronic Assessment and Plan: * baseline creatinine seems to run 1.4 - 1.6mg/dl * presumably due to hypertension and diabetes (3) Hyperkalemia: Code(s): E87.5 - Hyperkalemia Status: Acute Assessment and Plan: * resolved * due to LEMUEL/ARF along with acidosis * s/p medical management * follow repeat potassium levels (4) Metabolic acidosis: Code(s): E87.20 - Acidosis, unspecified Status: Acute Assessment and Plan: * quite severe on presentation * slow improvement noted * presumably precipitated by GI loss/diarrhea on top of LEMUEL/ARF and possibly metformin use * agree with bicarbonate gtt and oral bicarbonate * follow repeat labs (5) Diarrhea: Qualifiers: Diarrhea type: unspecified type Qualified Code(s): R19.7 - Diarrhea, unspecified Code(s): R19.7 - Diarrhea, unspecified Status: Acute Assessment and Plan: * etiology? * no new outside foods * did recently start Mounjaro... * continue supportive therapy (6) Urinary tract infection: Qualifiers: Hematuria presence: with hematuria Urinary tract infection type: acute cystitis Qualified Code(s): N30.01 - Acute cystitis with hematuria Code(s): N39.0 - Urinary tract infection, site not specified Status: Acute Assessment and Plan: * UA highly suggestive on admission * on antibiotics * follow-up on urine culture (7) Acute pancreatitis: Qualifiers: Acute pancreatitis complication: unspecified Pancreatitis type: unspecified pancreatitis type Qualified Code(s): K85.90 - Acute pancreatitis without necrosis or infection, unspecified Code(s): K85.90 - Acute pancreatitis without necrosis or infection, unspecified Status: Acute Assessment and Plan: * elevated lipase noted * CT with peripancreatic inflammation (due to Mounjaro?) * continue IVFs as tolerated (8) COVID-19: Code(s): U07.1 - COVID-19 Status: Acute Assessment and Plan: * tested positive for COVID-19 * however on room air * supportive therapy for now Will continue to follow. Subjective Date/time seen: 07/29/23 10:03 Interval history: Follow-up for acute kidney injury/acute renal failure on chronic kidney disease. Overall, the patient reports that is feeling better in general and certainly more so than on admission; better urine output noted in the last 24 hours' reports some intermittent abdominal pain but tolerable; acidosis doing a bit better with bicarb fluids and oral bicarbonate therapy. Exam Narrative: General: WD/WN male in NAD Heart: normal S1 and S2; no rub
--- NOTE | 2023-07-29 10:03 | PM.PNNEP ---
Progress Note: A&P Assessment and Plan (1) LEMUEL (acute kidney injury): Code(s): N17.9 - Acute kidney failure, unspecified Status: Acute Assessment and Plan: presumably due to volume depletion/dehydration from diarrhea (from Mounjaro use?) suspect may have progressed to mild ATN upon presentation likely worsened by use of CONCHITA-I, HCTZ, and metformin s/p aggressive IVF resuscitation on bicarb gtt given severe acidosis continue IVFs as respiratory status allows evaluation noted to date: CT imaging without obstruction urine electrolytes (FeUrea) just barely prerenal urine eosinophils negative CPK normal follow repeat labs and UOP (2) Stage 3a chronic kidney disease: Code(s): N18.31 - Chronic kidney disease, stage 3a Status: Chronic Assessment and Plan: baseline creatinine seems to run 1.4 - 1.6mg/dl presumably due to hypertension and diabetes (3) Hyperkalemia: Code(s): E87.5 - Hyperkalemia Status: Acute Assessment and Plan: resolved due to LEMUEL/ARF along with acidosis s/p medical management follow repeat potassium levels (4) Metabolic acidosis: Code(s): E87.20 - Acidosis, unspecified Status: Acute Assessment and Plan: quite severe on presentation slow improvement noted presumably precipitated by GI loss/diarrhea on top of LEMUEL/ARF and possibly metformin use agree with bicarbonate gtt and oral bicarbonate follow repeat labs (5) Diarrhea: Qualifiers: Diarrhea type: unspecified type Qualified Code(s): R19.7 - Diarrhea, unspecified Code(s): R19.7 - Diarrhea, unspecified Status: Acute Assessment and Plan: etiology? no new outside foods did recently start Mounjaro... continue supportive therapy (6) Urinary tract infection: Qualifiers: Hematuria presence: with hematuria Urinary tract infection type: acute cystitis Qualified Code(s): N30.01 - Acute cystitis with hematuria Code(s): N39.0 - Urinary tract infection, site not specified Status: Acute Assessment and Plan: UA highly suggestive on admission on antibiotics follow-up on urine culture (7) Acute pancreatitis: Qualifiers: Acute pancreatitis complication: unspecified Pancreatitis type: unspecified pancreatitis type Qualified Code(s): K85.90 - Acute pancreatitis without necrosis or infection, unspecified Code(s): K85.90 - Acute pancreatitis without necrosis or infection, unspecified Status: Acute Assessment and Plan: elevated lipase noted CT with peripancreatic inflammation (due to Mounjaro?) continue IVFs as tolerated (8) COVID-19: Code(s): U07.1 - COVID-19 Status: Acute Assessment and Plan: tested positive for COVID-19 however on room air supportive therapy for now Will continue to follow. Subjective Date/time seen: 07/29/23 10:03 Interval history: Follow-up for acute kidney injury/acute renal failure on chronic kidney disease. Overall, the patient reports that is feeling better in general and certainly more so than on admission; better urine output noted in the last 24 hours' reports some intermittent abdominal pain but tolerable; acidosis doing a bit better with bicarb fluids and oral bicarbonate therapy. Exam Narrative: General: WD/WN male in NAD Heart: normal S1 and S2; no rub Lungs: clear to auscultation Abdomen: obese. but nontender, nondistended, positive bowel sounds Extremities: no cyanosis or clubbing; no edema Skin: warm and dry Objective Data Vital Signs Vital Signs: Vital Signs Temp Pulse Resp BP Pulse Ox O2 Del Method 07/29/23 08:00 96 Room Air 07/29/23 08:00 98.3 F 105 H 17 135/79 96 07/29/23 08:00 98 07/29/23 06:00 92 13 123/71 100 07/29/23 06:00 92 07/29/23 04:00 99 07/29/23 04:00 98.0 F 97 18 97/50 L 96 07/29
--- NOTE | 2023-07-29 12:24 | PM.IMPN ---
Progress Note: A&P Assessment and Plan (1) Acute renal failure: Qualifiers: Acute renal failure type: unspecified Qualified Code(s): N17.9 - Acute kidney failure, unspecified Code(s): N17.9 - Acute kidney failure, unspecified Status: Acute Assessment and Plan: Patient presented with complaints of diarrhea that was persistent for 2 days prior to admission. He was on Ozempic for 1 month for weight loss but change to Mounjaro last week. [place] weak, dehydrated, decreased p.o. intake and decreased urination. No bleeding In ER, found to be hyperkalemic (6.7), acidotic (CO2 of<5 and pH 6.94) and LEMUEL with creatinine of 7.5 (normal baseline 1.45-1.63) Patient was given 3 L IV fluids and started on bicarb infusion. Additional IV fluids given after admission Nephrology consulted and appreciate their input UOP 2050 yesterday and 2300 so far today Cr better at 4.6. Acidosis improved Continue IV and oral Bicarb Appreciate nephrology input Continue to monitor renal function, electrolytes and urine output (2) Metabolic acidosis: Code(s): E87.20 - Acidosis, unspecified Status: Acute Assessment and Plan: Severe metabolic acidosis with ABG 6.94/18/118 on RA. Serum bicarb <5. [place] related to diarrhea and loss of bicarb. Diarrhea is a side effect of tirzepatide. Better with serum bicarb 12 Anion gap improved at 23 Potassium low as expected as acidosis improves - this was replaced. Continue oral and IV bicarb (3) Urinary tract infection: Qualifiers: Hematuria presence: with hematuria Urinary tract infection type: acute cystitis Qualified Code(s): N30.01 - Acute cystitis with hematuria Code(s): N39.0 - Urinary tract infection, site not specified Status: Acute Assessment and Plan: UA noted and concerning for UTI. UCx collected and he was started on ceftriaxone UCx pending BCx NGTD Continue ceftriaxone (4) Acute pancreatitis: Qualifiers: Acute pancreatitis complication: unspecified Pancreatitis type: unspecified pancreatitis type Qualified Code(s): K85.90 - Acute pancreatitis without necrosis or infection, unspecified Code(s): K85.90 - Acute pancreatitis without necrosis or infection, unspecified Status: Acute Assessment and Plan: Elevated lipase [place] 4330 [place] [address] scan showing mild inflammatory changes surrounding the pancreas TG 374. CT showing dilated GB with slightly hyperdense content but no visible stones. RUQ US showing no hepatic steatosis but no GB abnormalities or gallstones. Consider related to medications: tirzepatide Repeat Lipase 7600 Continue clear liquid diet. (5) Diarrhea: Qualifiers: Diarrhea type: unspecified type Qualified Code(s): R19.7 - Diarrhea, unspecified Code(s): R19.7 - Diarrhea, unspecified Status: Acute Assessment and Plan: Diarrhea could be multifactorial such as viral or medication or food borne. He hasn't eaten anything out of the norm He took Mounjaro last week which can cause pancreatitis, n/v, diarrhea and LEMUEL No BM since admission until today and only loose. Diarrhea resolving As above. Monitor stool output Okay to stop Flagyl (6) COVID-19: Code(s): U07.1 - COVID-19 Status: Acute Assessment and Plan: Patient tested positive was COVID-19 on 07/27. He remains on room air. Patient does have risk factors (DM, morbid obesity) that puts him at risk for severe COVID. He only received 1 dose of the COVID vaccine in 2020(?) CRP 7.1. Ferritin 183. CRP elevated and has risk factors. No contraindication for Remdesivir. Start Remdesivir. (7) Hyperkalemia: Code(s): E87.5 - Hyperkalemia Status: Acute Assessment and Plan: Patient noted to have hyperkalemia to 6.7 likely related to LEMUEL treated appropriately. Potassium normal now Follow (8) Type 2 diabetes mellitus: Co
[2023-07-29 13:08] LABS: Glucose Point of Care 127 mg/dl (65-105)
[2023-07-29] MEDS: REMDESIVIR 200 MG/NS 250 ML 200 MG/250 ML BAG 250 MG IVPB (14:16)
[2023-07-29 16:18] LABS: Anion Gap 18 mmol/L (8-16); Blood Urea Nitrogen 76 mg/dL (9-20); Calcium 6.6 mg/dL (8.4-10.2); Carbon Dioxide 16 mmol/L (22-30); Chloride 109 mmol/L (98-107); Estimated CRCL calculation 43 ml/min; Estimated Glomerular Filt Rate 21; Glucose 122 mg/dL (65-110); Potassium 2.8 mmol/L (3.4-5.0); Sodium 143 mmol/L (137-145)
[2023-07-29] MEDS: POTASSIUM CHLORIDE 20 MEQ ER TABLET 40 MEQ PO (17:04)
[2023-07-29 17:16] LABS: Glucose Point of Care 128 mg/dl (65-105)
[2023-07-29] MEDS: HYDROmorphone HCL INJ (*CRX) 1 MG/ML SYR 0.5 MG IV PUSH (20:51)
[2023-07-29] MEDS: OMEGA 3 POLYUNSAT FATTY ACIDS 1 GM CAP 2 GM PO (20:52)
[2023-07-29 22:33] LABS: Anion Gap 16 mmol/L (8-16); Blood Urea Nitrogen 67 mg/dL (9-20); Calcium 6.4 mg/dL (8.4-10.2); Carbon Dioxide 19 mmol/L (22-30); Chloride 107 mmol/L (98-107); Estimated CRCL calculation 51 ml/min; Estimated Glomerular Filt Rate 25; Glucose 124 mg/dL (65-110); Potassium 2.7 mmol/L (3.4-5.0); Sodium 142 mmol/L (137-145)
[2023-07-29] MEDS: POTASSIUM CHLORIDE 20 MEQ ER TABLET 80 MEQ PO (23:48)
[2023-07-29] MEDS: cefTRIAXone 2 GM/NS 100 ML 2 GM/100 ML BAG IVPB (23:49)
[2023-07-30] VITALS (11 sets, daily range): BP systolic 123–145; BP diastolic 67–98; PULSE 79–103; RESP 15–17; TEMP 36.6–37.2; O2SAT 91–98
[2023-07-30] MEDS: SODIUM BICARBONATE 8.4% 150 MEQ in WATER, STERILE FOR INJECTION 950 ML IV CONT (03:08)
[2023-07-30] MEDS: HYDROmorphone HCL INJ (*CRX) 1 MG/ML SYR 0.5 MG IV PUSH ×2 (03:09→21:32)
[2023-07-30 05:41] LABS: Hematocrit 28.6 % (42.0-52.0); Mean Corpuscular HGB Conc 31.5 g/dl (32-36); Mean Corpuscular Hemoglobin 26.1 pg (26-34); Mean Corpuscular Volume 82.9 fl (80-100); Mean Platelet Volume 9.6 fl (7.4-10.4); Platelet Count Result 196 k/mm3 (150-375); Red Blood Count 3.45 M/mm3 (4.6-6.20); Red Cell Distribution Width 16.2 % (11.5-14.5); White Blood Count 7.2 K/mm3 (4.5-10.0)
[2023-07-30 05:57] LABS: Alanine Aminotransferase 24 U/L (6-50); Albumin Level 3.1 g/dL (3.5-5.1); Alkaline Phosphatase 70 U/L (38-126); Anion Gap 12 mmol/L (8-16); Aspartate Amino Transferase 39 U/L (17-59); Bilirubin,Total 0.4 mg/dL (0.2-1.3); Blood Urea Nitrogen 60 mg/dL (9-20); Calcium 6.1 mg/dL (8.4-10.2); Carbon Dioxide 23 mmol/L (22-30); Chloride 108 mmol/L (98-107); Estimated CRCL calculation 68 ml/min; Estimated Glomerular Filt Rate 35; Glucose 118 mg/dL (65-110); Magnesium 1.9 mg/dL (1.6-2.3); Phosphorus 2.4 mg/dL (2.5-4.5); Potassium 2.8 mmol/L (3.4-5.0); Sodium 143 mmol/L (137-145)
[2023-07-30] MEDS: POTASSIUM CHLORIDE 20 MEQ ER TABLET 80 MEQ PO (06:35)
[2023-07-30] MEDS: POTASSIUM PHOS,M-BASIC-D-BASIC 40 MMOL in SODIUM CHLORIDE 0.9% IV 250 ML 43.89 MMOL IVPB (08:13)
[2023-07-30] MEDS: HEPARIN SODIUM 5,000 UNITS/ML VIAL 5000 UNITS SUB-Q ×2 (08:14→21:31)
[2023-07-30] MEDS: PANTOPRAZOLE SODIUM IV 40 MG VIAL IV PUSH (08:14)
[2023-07-30] MEDS: LIDOCAINE 5% PATCH 2 PATCH TRANSDERM (08:19)
[2023-07-30] MEDS: ACETAMINOPHEN 325 MG TABLET 650 MG PO ×2 (08:20→14:02)
[2023-07-30] MEDS: SODIUM CHLORIDE 0.9% IV 1,000 ML 75 ML IV CONT (08:22)
[2023-07-30] MEDS: REMDESIVIR 100 MG/NS 250 ML 100 MG/250 ML BAG 250 MG IVPB (10:59)
[2023-07-30 11:45] LABS: Glucose Point of Care 148 mg/dl (65-105)
--- NOTE | 2023-07-30 13:10 | PM.PNNEP ---
Progress Note: A&P Assessment and Plan (1) LEMUEL (acute kidney injury): Code(s): N17.9 - Acute kidney failure, unspecified Status: Acute Assessment and Plan: improvement noted presumably due to volume depletion/dehydration from diarrhea (from Mounjaro use?) suspect may have progressed to mild ATN upon presentation likely worsened by use of CONCHITA-I, HCTZ, and metformin s/p aggressive IVF resuscitation s/p bicarb gtt given severe acidosis on admission continue IVFs as respiratory status allows evaluation noted to date: CT imaging without obstruction urine electrolytes (FeUrea) just barely prerenal urine eosinophils negative CPK normal follow repeat labs and UOP (2) Stage 3a chronic kidney disease: Code(s): N18.31 - Chronic kidney disease, stage 3a Status: Chronic Assessment and Plan: baseline creatinine seems to run 1.4 - 1.6mg/dl presumably due to hypertension and diabetes (3) Hyperkalemia: Code(s): E87.5 - Hyperkalemia Status: Acute Assessment and Plan: resolved due to LEMUEL/ARF along with acidosis s/p medical management (4) Hypokalemia: Code(s): E87.6 - Hypokalemia Status: Acute Assessment and Plan: due to use of bicarbonate IVFs and GI loss aggressive replacement therapy as needed follow trend of repeat K+ levels (5) Metabolic acidosis: Code(s): E87.20 - Acidosis, unspecified Status: Acute Assessment and Plan: improving quite severe on presentation presumably precipitated by GI loss/diarrhea on top of LEMUEL/ARF and possibly metformin use off bicarbonate gtt but remains on oral bicarbonate follow repeat labs (6) Diarrhea: Qualifiers: Diarrhea type: unspecified type Qualified Code(s): R19.7 - Diarrhea, unspecified Code(s): R19.7 - Diarrhea, unspecified Status: Acute Assessment and Plan: etiology? no new outside foods did recently start Mounjaro... continue supportive therapy (7) Acute pancreatitis: Qualifiers: Acute pancreatitis complication: unspecified Pancreatitis type: unspecified pancreatitis type Qualified Code(s): K85.90 - Acute pancreatitis without necrosis or infection, unspecified Code(s): K85.90 - Acute pancreatitis without necrosis or infection, unspecified Status: Acute Assessment and Plan: elevated lipase noted - trending nown CT with peripancreatic inflammation (due to Mounjaro?) continue IVFs as tolerated (8) COVID-19: Code(s): U07.1 - COVID-19 Status: Acute Assessment and Plan: tested positive for COVID-19 however on room air supportive therapy for now Will continue to follow. Subjective Date/time seen: 07/30/23 13:10 Interval history: Follow-up for acute kidney injury/acute renal failure on chronic kidney disease. Continues to make slow and steady improvement; good urine output but issues with hypokalemia noted requiring aggressive replacement therapy; acidosis improving so bicarb fluids switched to normal saline; stable hemodynamics noted as well. Exam Narrative: General: WD/WN male in NAD Heart: normal S1 and S2; no rub Lungs: clear to auscultation Abdomen: obese. but nontender, nondistended, positive bowel sounds Extremities: no cyanosis or clubbing; no edema Skin: warm and ntact Objective Data Vital Signs Vital Signs: Vital Signs Temp Pulse Resp BP Pulse Ox O2 Del Method O2 Flow Rate 07/30/23 13:05 Room Air 07/30/23 12:00 97 Room Air 07/30/23 12:00 92 07/30/23 12:00 98.7 F 103 H 16 123/68 95 07/30/23 10:00 86 07/30/23 08:00 94 Room Air 07/30/23 10:25 Room Air 07/30/23 08:00 85 07/30/23 08:00 99 F 85 17 133/88 97 07/30/23 06:00 96 07/30/23 04:00 98.1 F 86 16 145/67 H 93 07/30/23 04:00 86 07/30/23 03:14 91 Room Air
--- NOTE | 2023-07-30 13:10 | P.PNNP_ITS ---
Progress Note: A&P Assessment and Plan (1) LEMUEL (acute kidney injury): Code(s): N17.9 - Acute kidney failure, unspecified Status: Acute Assessment and Plan: * improvement noted * presumably due to volume depletion/dehydration from diarrhea (from Mounjaro use?) * suspect may have progressed to mild ATN upon presentation * likely worsened by use of CONCHITA-I, HCTZ, and metformin * s/p aggressive IVF resuscitation * s/p bicarb gtt given severe acidosis on admission * continue IVFs as respiratory status allows * evaluation noted to date: * CT imaging without obstruction * urine electrolytes (FeUrea) just barely prerenal * urine eosinophils negative * CPK normal * follow repeat labs and UOP (2) Stage 3a chronic kidney disease: Code(s): N18.31 - Chronic kidney disease, stage 3a Status: Chronic Assessment and Plan: * baseline creatinine seems to run 1.4 - 1.6mg/dl * presumably due to hypertension and diabetes (3) Hyperkalemia: Code(s): E87.5 - Hyperkalemia Status: Acute Assessment and Plan: * resolved * due to LEMUEL/ARF along with acidosis * s/p medical management (4) Hypokalemia: Code(s): E87.6 - Hypokalemia Status: Acute Assessment and Plan: * due to use of bicarbonate IVFs and GI loss * aggressive replacement therapy as needed * follow trend of repeat K+ levels (5) Metabolic acidosis: Code(s): E87.20 - Acidosis, unspecified Status: Acute Assessment and Plan: * improving * quite severe on presentation * presumably precipitated by GI loss/diarrhea on top of LEMUEL/ARF and possibly metformin use * off bicarbonate gtt but remains on oral bicarbonate * follow repeat labs (6) Diarrhea: Qualifiers: Diarrhea type: unspecified type Qualified Code(s): R19.7 - Diarrhea, unspecified Code(s): R19.7 - Diarrhea, unspecified Status: Acute Assessment and Plan: * etiology? * no new outside foods * did recently start Mounjaro... * continue supportive therapy (7) Acute pancreatitis: Qualifiers: Acute pancreatitis complication: unspecified Pancreatitis type: unspecified pancreatitis type Qualified Code(s): K85.90 - Acute pancreatitis without necrosis or infection, unspecified Code(s): K85.90 - Acute pancreatitis without necrosis or infection, unspecified Status: Acute Assessment and Plan: * elevated lipase noted - trending nown * CT with peripancreatic inflammation (due to Mounjaro?) * continue IVFs as tolerated (8) COVID-19: Code(s): U07.1 - COVID-19 Status: Acute Assessment and Plan: * tested positive for COVID-19 * however on room air * supportive therapy for now Will continue to follow. Subjective Date/time seen: 07/30/23 13:10 Interval history: Follow-up for acute kidney injury/acute renal failure on chronic kidney disease. Continues to make slow and steady improvement; good urine output but issues with hypokalemia noted requiring aggressive replacement therapy; acidosis improving so bicarb fluids switched to normal saline; stable hemodynamics noted as well. Exam Narrative: General: WD/WN male in NAD Heart: normal S1 and S2; no rub Lungs: clear to auscultation Abdomen: obese. but nontender, nondistended, positive bowel sounds Extremities: no cyanosis or clubbing; no edema Skin: warm and ntact Objective Data
--- NOTE | 2023-07-30 15:42 | P.PNIM_ITS ---
Progress Note: A&P Assessment and Plan (1) Acute renal failure: Qualifiers: Acute renal failure type: unspecified Qualified Code(s): N17.9 - Acute kidney failure, unspecified Code(s): N17.9 - Acute kidney failure, unspecified Status: Acute Assessment and Plan: Patient presented with complaints of diarrhea that was persistent for 2 days prior to admission. He was on Ozempic for 1 month for weight loss but change to Mounjaro last week. [place] weak, dehydrated, decreased p.o. intake and decreased urination. No bleeding In ER, found to be hyperkalemic (6.7), acidotic (CO2 of<5 and pH 6.94) and LEMUEL with creatinine of 7.5 (normal baseline 1.45-1.63) Patient was given 3 L IV fluids and started on bicarb infusion. Additional IV fluids given after admission Nephrology consulted and appreciate their input UOP 2050 yesterday and 2300 so far today Cr better at 4.6. Acidosis improved Continue IV and oral Bicarb Appreciate nephrology input Continue to monitor renal function, electrolytes and urine output (2) Metabolic acidosis: Code(s): E87.20 - Acidosis, unspecified Status: Acute Assessment and Plan: Severe metabolic acidosis with ABG 6.94/18/118 on RA. Serum bicarb <5. [place] related to diarrhea and loss of bicarb. Diarrhea is a side effect of tirzepatide. Better with serum bicarb 12 Anion gap improved at 23 Potassium low as expected as acidosis improves - this was replaced. Continue oral and IV bicarb (3) Urinary tract infection: Qualifiers: Hematuria presence: with hematuria Urinary tract infection type: acute cystitis Qualified Code(s): N30.01 - Acute cystitis with hematuria Code(s): N39.0 - Urinary tract infection, site not specified Status: Acute Assessment and Plan: UA noted and concerning for UTI. UCx collected and he was started on ceftriaxone UCx pending BCx NGTD Continue ceftriaxone (4) Acute pancreatitis: Qualifiers: Acute pancreatitis complication: unspecified Pancreatitis type: unspecified pancreatitis type Qualified Code(s): K85.90 - Acute pancreatitis without necrosis or infection, unspecified Code(s): K85.90 - Acute pancreatitis without necrosis or infection, unspecified Status: Acute Assessment and Plan: Elevated lipase [place] 4330 [place] [address] [place] scan showing mild inflammatory changes surrounding the pancreas TG 374. CT showing dilated GB with slightly hyperdense content but no visible stones. RUQ US showing no hepatic steatosis but no GB abnormalities or gallstones. Consider related to medications: tirzepatide Repeat Lipase 7600 Continue clear liquid diet. (5) Diarrhea: Qualifiers: Diarrhea type: unspecified type Qualified Code(s): R19.7 - Diarrhea, unspecified Code(s): R19.7 - Diarrhea, unspecified Status: Acute Assessment and Plan: Diarrhea could be multifactorial such as viral or medication or food borne. He hasn't eaten anything out of the norm He took Mounjaro last week which can cause pancreatitis, n/v, diarrhea and LEMUEL No BM since admission until today and only loose. Diarrhea resolving As above. Monitor stool output Okay to stop Flagyl (6) COVID-19: Code(s): U07.1 - COVID-19 Status: Acute Assessment and Plan: Patient tested positive was COVID-19 on 07/27. He remains on room air. Patient does have risk factors (DM, morbid obesity) that puts him at risk for severe COVID. He only received 1 dose of the COVID vaccine in 2020(?)
[2023-07-30 15:45] LABS: Anion Gap 13 mmol/L (8-16); Blood Urea Nitrogen 49 mg/dL (9-20); Calcium 6.2 mg/dL (8.4-10.2); Carbon Dioxide 21 mmol/L (22-30); Chloride 108 mmol/L (98-107); Estimated CRCL calculation 94 ml/min; Estimated Glomerular Filt Rate 51; Glucose 177 mg/dL (65-110); Phosphorus 2.5 mg/dL (2.5-4.5); Sodium 142 mmol/L (137-145)
[2023-07-30] MEDS: POTASSIUM CHLORIDE 20 MEQ ER TABLET 40 MEQ PO (16:30)
[2023-07-30] MEDS: POTASSIUM CHLORIDE INJ 40 MEQ in SODIUM CHLORIDE 0.9% IV 500 ML 130 MEQ IVPB (16:31)
[2023-07-30 16:40] LABS: Glucose Point of Care 149 mg/dl (65-105)
[2023-07-30] MEDS: SODIUM BICARBONATE TAB 650 MG TABLET 1300 MG PO (17:45)
--- NOTE | 2023-07-30 18:40 | PC.NURSE ---
Received from ICU/7 via wheelchair.
--- NOTE | 2023-07-30 18:50 | PC.NURSE ---
This patient, Bucky Flynn, was transferred to [ [id number]] on 07/30/23 at 1840. Personal belongings sent with patient. Report given to [ Mary Lou]. Appropriate documentation sent with patient.
[2023-07-30] MEDS: OMEGA 3 POLYUNSAT FATTY ACIDS 1 GM CAP 2 GM PO (21:33)
[2023-07-30 22:45] LABS: Glucose Point of Care 133 mg/dl (65-105)
[2023-07-30] MEDS: cefTRIAXone 2 GM/NS 100 ML 2 GM/100 ML BAG IVPB (23:01)
[2023-07-31] MEDS: HYDROmorphone HCL INJ (*CRX) 1 MG/ML SYR 0.5 MG IV PUSH (04:00)
[2023-07-31 06:06] LABS: Hematocrit 27.5 % (42.0-52.0); Hemoglobin 8.5 g/dL (14.0-18.0); Mean Corpuscular HGB Conc 30.9 g/dl (32-36); Mean Corpuscular Hemoglobin 25.7 pg (26-34); Mean Corpuscular Volume 83.1 fl (80-100); Mean Platelet Volume 9.6 fl (7.4-10.4); Platelet Count Result 221 k/mm3 (150-375); Red Blood Count 3.31 M/mm3 (4.6-6.20); Red Cell Distribution Width 16.3 % (11.5-14.5); White Blood Count 8.1 K/mm3 (4.5-10.0)
[2023-07-31 06:11] VITALS: BP 142/73; PULSE 92; RESP 16; TEMP 36.7; O2SAT 95
[2023-07-31 06:25] LABS: Alanine Aminotransferase 23 U/L (6-50); Albumin Level 3.2 g/dL (3.5-5.1); Alkaline Phosphatase 69 U/L (38-126); Anion Gap 12 mmol/L (8-16); Aspartate Amino Transferase 32 U/L (17-59); Bilirubin,Total 0.3 mg/dL (0.2-1.3); Blood Urea Nitrogen 32 mg/dL (9-20); Calcium 6.7 mg/dL (8.4-10.2); Carbon Dioxide 22 mmol/L (22-30); Chloride 111 mmol/L (98-107); Estimated CRCL calculation 116 ml/min; Estimated Glomerular Filt Rate > 60; Glucose 136 mg/dL (65-110); Magnesium 1.8 mg/dL (1.6-2.3); Phosphorus 2.1 mg/dL (2.5-4.5); Sodium 145 mmol/L (137-145)
[2023-07-31 06:38] LABS: INR 1.2; Prothrombin Time 15.5 Seconds (11.1-14.7)
[2023-07-31 09:33] LABS: Glucose Point of Care 194 mg/dl (65-105)
[2023-07-31] MEDS: POTASSIUM CHLORIDE 20 MEQ ER TABLET 40 MEQ PO ×2 (10:03→12:40)
[2023-07-31] MEDS: SODIUM BICARBONATE TAB 650 MG TABLET 1300 MG PO (10:04)
[2023-07-31] MEDS: oxyCODONE/ACETAMINOPHEN (*CRX) 5-325 MG TABLET 1 TABLET PO (10:04)
[2023-07-31] MEDS: HEPARIN SODIUM 5,000 UNITS/ML VIAL 5000 UNITS SUB-Q (10:05)
[2023-07-31] MEDS: PANTOPRAZOLE SODIUM IV 40 MG VIAL IV PUSH (10:07)
[2023-07-31 11:43] LABS: Glucose Point of Care 160 mg/dl (65-105)
--- NOTE | 2023-07-31 12:55 | P.PNNP_ITS ---
Progress Note: A&P Assessment and Plan (1) LEMUEL (acute kidney injury): Code(s): N17.9 - Acute kidney failure, unspecified Status: Acute Assessment and Plan: * resolved * presumably due to volume depletion/dehydration from diarrhea (from Mounjaro use?) * suspect may have progressed to mild ATN upon presentation * likely worsened by use of CONCHITA-I, HCTZ, and metformin * s/p aggressive IVF resuscitation * s/p bicarb gtt given severe acidosis on admission * continue IVFs and wean as tolerated * evaluation noted to date: * CT imaging without obstruction * urine electrolytes (FeUrea) just barely prerenal * urine eosinophils negative * CPK normal * follow repeat labs and UOP (2) Stage 3a chronic kidney disease: Code(s): N18.31 - Chronic kidney disease, stage 3a Status: Chronic Assessment and Plan: * baseline creatinine seems to run 1.4 - 1.6mg/dl * better than baseline at this time * presumably due to hypertension and diabetes (3) Hyperkalemia: Code(s): E87.5 - Hyperkalemia Status: Acute Assessment and Plan: * resolved * due to LEMUEL/ARF along with acidosis * s/p medical management (4) Hypokalemia: Code(s): E87.6 - Hypokalemia Status: Acute Assessment and Plan: * due to use of bicarbonate IVFs and GI loss * aggressive replacement therapy as needed * follow trend of repeat K+ levels (5) Metabolic acidosis: Code(s): E87.20 - Acidosis, unspecified Status: Acute Assessment and Plan: * improving * quite severe on presentation * presumably precipitated by GI loss/diarrhea on top of LEMUEL/ARF and possibly metformin use * off bicarbonate gtt but remains on oral bicarbonate * follow repeat labs (6) Diarrhea: Qualifiers: Diarrhea type: unspecified type Qualified Code(s): R19.7 - Diarrhea, unspecified Code(s): R19.7 - Diarrhea, unspecified Status: Acute Assessment and Plan: * etiology? * no new outside foods * did recently start Mounjaro... * continue supportive therapy (7) Acute pancreatitis: Qualifiers: Acute pancreatitis complication: unspecified Pancreatitis type: unspecified pancreatitis type Qualified Code(s): K85.90 - Acute pancreatitis without necrosis or infection, unspecified Code(s): K85.90 - Acute pancreatitis without necrosis or infection, unspecified Status: Acute Assessment and Plan: * elevated lipase noted - trending nown * CT with peripancreatic inflammation (due to Mounjaro?) * continue IVFs as tolerated (8) COVID-19: Code(s): U07.1 - COVID-19 Status: Acute Assessment and Plan: * tested positive for COVID-19 * however on room air * supportive therapy for now Will continue to follow. Subjective Date/time seen: 07/31/23 12:55 Interval history: Follow-up for acute kidney injury/acute renal failure on chronic kidney disease. Good urine output noted with ongoing improvement in renal function; diarrhea appears to have resolved; remains hemodynamically stable; potassium low by AM labs but being replaced; no apparent distress noted; no other issues/events overnight or earlier this morning. Exam Narrative: General: WD/WN male in NAD Heart: normal S1 and S2; no rub Lungs: clear to auscultation Abdomen: obese but nontender, nondistended, positive bowel sounds Extremities: no cyanosis or clubbing; no edema Skin: no
--- NOTE | 2023-07-31 12:55 | PM.PNNEP ---
Progress Note: A&P Assessment and Plan (1) LEMUEL (acute kidney injury): Code(s): N17.9 - Acute kidney failure, unspecified Status: Acute Assessment and Plan: resolved presumably due to volume depletion/dehydration from diarrhea (from Mounjaro use?) suspect may have progressed to mild ATN upon presentation likely worsened by use of CONCHITA-I, HCTZ, and metformin s/p aggressive IVF resuscitation s/p bicarb gtt given severe acidosis on admission continue IVFs and wean as tolerated evaluation noted to date: CT imaging without obstruction urine electrolytes (FeUrea) just barely prerenal urine eosinophils negative CPK normal follow repeat labs and UOP (2) Stage 3a chronic kidney disease: Code(s): N18.31 - Chronic kidney disease, stage 3a Status: Chronic Assessment and Plan: baseline creatinine seems to run 1.4 - 1.6mg/dl better than baseline at this time presumably due to hypertension and diabetes (3) Hyperkalemia: Code(s): E87.5 - Hyperkalemia Status: Acute Assessment and Plan: resolved due to LEMUEL/ARF along with acidosis s/p medical management (4) Hypokalemia: Code(s): E87.6 - Hypokalemia Status: Acute Assessment and Plan: due to use of bicarbonate IVFs and GI loss aggressive replacement therapy as needed follow trend of repeat K+ levels (5) Metabolic acidosis: Code(s): E87.20 - Acidosis, unspecified Status: Acute Assessment and Plan: improving quite severe on presentation presumably precipitated by GI loss/diarrhea on top of LEMUEL/ARF and possibly metformin use off bicarbonate gtt but remains on oral bicarbonate follow repeat labs (6) Diarrhea: Qualifiers: Diarrhea type: unspecified type Qualified Code(s): R19.7 - Diarrhea, unspecified Code(s): R19.7 - Diarrhea, unspecified Status: Acute Assessment and Plan: etiology? no new outside foods did recently start Mounjaro... continue supportive therapy (7) Acute pancreatitis: Qualifiers: Acute pancreatitis complication: unspecified Pancreatitis type: unspecified pancreatitis type Qualified Code(s): K85.90 - Acute pancreatitis without necrosis or infection, unspecified Code(s): K85.90 - Acute pancreatitis without necrosis or infection, unspecified Status: Acute Assessment and Plan: elevated lipase noted - trending nown CT with peripancreatic inflammation (due to Mounjaro?) continue IVFs as tolerated (8) COVID-19: Code(s): U07.1 - COVID-19 Status: Acute Assessment and Plan: tested positive for COVID-19 however on room air supportive therapy for now Will continue to follow. Subjective Date/time seen: 07/31/23 12:55 Interval history: Follow-up for acute kidney injury/acute renal failure on chronic kidney disease. Good urine output noted with ongoing improvement in renal function; diarrhea appears to have resolved; remains hemodynamically stable; potassium low by AM labs but being replaced; no apparent distress noted; no other issues/events overnight or earlier this morning. Exam Narrative: General: WD/WN male in NAD Heart: normal S1 and S2; no rub Lungs: clear to auscultation Abdomen: obese but nontender, nondistended, positive bowel sounds Extremities: no cyanosis or clubbing; no edema Skin: no rash or nodules Objective Data Vital Signs Vital Signs: Vital Signs Temp Pulse Resp BP Pulse Ox O2 Del Method 07/31/23 10:00 Room Air 07/31/23 06:11 98.1 F 92 16 142/73 H 95 07/30/23 20:00 Room Air 07/30/23 22:26 98.3 F 89 16 143/86 H 98 07/30/23 16:00 97.8 F 101 H 17 141/98 H 97 Intake/Output Intake/Output: Intake & Output 07/28/23 07/29/23 07/30/23 07/31/23 23:59 23:59 23:59 23:59 Intake Total 3460 5900 4810 1680 Output Total 2052 4700 4325 Balance 1408 1200
--- NOTE | 2023-07-31 13:22 | PM.DS ---
DS: Admitting Diagnosis Discharge Date 07/31/23 Admitting Diagnosis diarrhea DS: Discharge Diagnosis Discharge Diagnosis (1) Acute renal failure: Qualifiers: Acute renal failure type: unspecified Qualified Code(s): N17.9 - Acute kidney failure, unspecified Code(s): N17.9 - Acute kidney failure, unspecified Status: Acute Assessment and Plan: Patient presented with complaints of diarrhea that was persistent for 2 days prior to admission. He was on Ozempic for 1 month for weight loss but change to Mounjaro last week. [place] weak, dehydrated, decreased p.o. intake and decreased urination. No bleeding In ER, found to be hyperkalemic (6.7), acidotic (CO2 of<5 and pH 6.94) and LEMUEL with creatinine of 7.5 (normal baseline 1.45-1.63) Patient was given 3 L IV fluids and started on bicarb infusion. Additional IV fluids given after admission Nephrology consulted and appreciate their input UOP 0 yesterday and 2300 so far today Cr better at 4.6. Acidosis improved Continue IV and oral Bicarb Appreciate nephrology input Continue to monitor renal function, electrolytes and urine output (2) Metabolic acidosis: Code(s): E87.20 - Acidosis, unspecified Status: Acute Assessment and Plan: Severe metabolic acidosis with ABG 6.94/18/118 on RA. Serum bicarb <5. [place] related to diarrhea and loss of bicarb. Diarrhea is a side effect of tirzepatide. Better with serum bicarb 12 Anion gap improved at 23 Potassium low as expected as acidosis improves - this was replaced. Continue oral and IV bicarb (3) Urinary tract infection: Qualifiers: Hematuria presence: with hematuria Urinary tract infection type: acute cystitis Qualified Code(s): N30.01 - Acute cystitis with hematuria Code(s): N39.0 - Urinary tract infection, site not specified Status: Acute Assessment and Plan: UA noted and concerning for UTI. UCx collected and he was started on ceftriaxone UCx pending BCx NGTD Continue ceftriaxone (4) Acute pancreatitis: Qualifiers: Acute pancreatitis complication: unspecified Pancreatitis type: unspecified pancreatitis type Qualified Code(s): K85.90 - Acute pancreatitis without necrosis or infection, unspecified Code(s): K85.90 - Acute pancreatitis without necrosis or infection, unspecified Status: Acute Assessment and Plan: Elevated lipase to 4330 [place] [id number] scan showing mild inflammatory changes surrounding the pancreas TG 374. CT showing dilated GB with slightly hyperdense content but no visible stones. RUQ US showing no hepatic steatosis but no GB abnormalities or gallstones. Consider related to medications: tirzepatide Repeat Lipase 7600 Continue clear liquid diet. (5) Diarrhea: Qualifiers: Diarrhea type: unspecified type Qualified Code(s): R19.7 - Diarrhea, unspecified Code(s): R19.7 - Diarrhea, unspecified Status: Acute Assessment and Plan: Diarrhea could be multifactorial such as viral or medication or food borne. He hasn't eaten anything out of the norm He took Mounjaro last week which can cause pancreatitis, n/v, diarrhea and LEMUEL No BM since admission until today and only loose. Diarrhea resolving As above. Monitor stool output Okay to stop Flagyl (6) COVID-19: Code(s): U07.1 - COVID-19 Status: Acute Assessment and Plan: Patient tested positive was COVID-19 on 07/27. He remains on room air. Patient does have risk factors (DM, morbid obesity) that puts him at risk for severe COVID. He only received 1 dose of the COVID vaccine in 2020(?) CRP 7.1. Ferritin 183. CRP elevated and has risk factors. No contraindication for Remdesivir. Start Remdesivir. (7) Hyperkalemia: Code(s): E87.5 - Hyperkalemia Status: Acute Assessment and Plan: Patient noted to have hyperkalemia to 6.7 likely related to LEMUEL treated ap
== END 2023-07-31 14:53 | disposition home or self-care (01) | DRG 682 ==
LOC: ANHED 23:04 → ANHICU 07-28 00:16 → ANH2MED 07-30 18:43
PROVIDERS: Internal Medicine; Internal Medicine Nephrology; Admitting Provider Internal Medicine; Emergency Provider Physician Assistant; PCP Family Medicine; Visit Provider Student in an Organized Health Care Education/Training Program
DX: N17.0 Acute kidney failure with tubular necrosis (principal); K85.90 Acute pancreatitis without necrosis or infection, unspecified; U07.1 COVID-19; Z68.43 Body mass index [BMI] 50.0-59.9, adult; E87.20 Acidosis, unspecified; N30.01 Acute cystitis with hematuria; T38.3X5A Adverse effect of insulin and oral hypoglycemic [antidiabetic] drugs, initial encounter; E11.22 Type 2 diabetes mellitus with diabetic chronic kidney disease; E83.51 Hypocalcemia; E66.01 Morbid (severe) obesity due to excess calories; E78.1 Pure hyperglyceridemia; E87.5 Hyperkalemia; I12.9 Hypertensive chronic kidney disease with stage 1 through stage 4 chronic kidney disease, or unspecified chronic kidney disease; N18.31 Chronic kidney disease, stage 3a; R19.7 Diarrhea, unspecified; Z79.82 Long term (current) use of aspirin; Z79.84 Long term (current) use of oral hypoglycemic drugs; Z79.4 Long term (current) use of insulin; Z79.85 Long-term (current) use of injectable non-insulin antidiabetic drugs
CPT/HCPCS: 36415; 36600; 71045; 74176; 76705; 76775; 80048; 80053; 80069; 80074; 81001; 81050; 82375; 82550; 82570; 82728; 82805; 82948; 83036; 83050; 83605; 83615; 83690; 83735; 83880; 84100; 84156; 84300; 84478; 84484; 84540; 85025; 85027; 85610; 85730; 85999; 86140; 87040; 87086; 87088; 87636; 93005; 94640; 96361; 96365; 96375; 96376; 97161; 97165; 99285; A9270; C9113; G0378; J0248; J0612; J0696; J1170; J1644; J1815; J1836; J3480; J7030; J7040; J7050

== ENCOUNTER 2023-08-11 17:06 | Outpatient (CLI) | payer BC, SELFPAY ==
[2023-08-11 18:04] LABS: Hematocrit 38.5 % (42.0-52.0); Hemoglobin 11.3 g/dL (14.0-18.0); Mean Corpuscular HGB Conc 29.4 g/dl (32-36); Mean Corpuscular Hemoglobin 25.6 pg (26-34); Mean Corpuscular Volume 87.3 fl (80-100); Mean Platelet Volume 10.3 fl (7.4-10.4); Platelet Count Result 515 k/mm3 (150-375); Red Blood Count 4.41 M/mm3 (4.6-6.20); Red Cell Distribution Width 14.7 % (11.5-14.5); White Blood Count 13.8 K/mm3 (4.5-10.0)
[2023-08-11 18:22] LABS: D Dimer 1.77 ug/mL (<0.48)
== END 2023-08-11 17:07 | disposition home or self-care (01) ==
PROVIDERS: PCP Family Medicine; Visit Provider Physician Assistant Medical
DX: R00.0 Tachycardia, unspecified (principal); R06.02 Shortness of breath; D64.9 Anemia, unspecified
CPT/HCPCS: 36415; 85027; 85380

== ENCOUNTER 2023-08-12 10:52 | Outpatient (CLI) | payer BC, SELFPAY ==
--- NOTE | ~2023-08-12 | CT_ITS ---
EXAMINATION: CTA chest PE protocol DATE: 08/12/2023 11:30 INDICATION: Shortness of breath. TECHNIQUE: Computed tomography angiography (CTA) of the chest was performed with 100 mL Omnipaque-350 intravenous contrast timed to evaluate the pulmonary arteries. Coronal maximum intensity projection 3D-reconstructions were created by the technologist. Automated exposure control and iterative reconst ruction technique were employed. The dose-length product was 1261.16 mGy-cm. COMPARISON: CT abdomen and pelvis 07/27/2023 FINDINGS: The lungs demonstrate minimal atelectasis. No pleural effusion. The heart size is normal. T here are coronary artery calcifications. No pericardial effusion. There is no pulmonary embolus. Medi astinal lipomatosis is noted. There is fat stranding around the pancreas, consistent with pancreatiti s. There is cortical thinning of the kidneys. There are stones in the kidneys measuring up to 9 mm on the right. There is mild thoracic spondylosis. There is mild chronic anterior wedging of multiple ve rtebral bodies. IMPRESSION: 1. No pulmonary embolus. 2. Acute interstitial pancreatitis with worsened findings from 07/27/2023. Reviewed, dictated and finalized at location A. OLEUM PLANT OPERATOR
== END 2023-08-12 10:53 | disposition home or self-care (01) ==
PROVIDERS: PCP Family Medicine; Visit Provider Physician Assistant
DX: R06.02 Shortness of breath (principal); R79.89 Other specified abnormal findings of blood chemistry
CPT/HCPCS: 71275; Q9967

== ENCOUNTER 2023-08-13 08:43 | Outpatient (CLI) | payer BC, SELFPAY ==
[2023-08-13 09:29] LABS: Basophils Absolute Auto 0.1 K/mm3 (0.0-0.1); Basophils Percent Auto 0.6 % (0.2-1.2); Eosinophils Absolute Auto 0.4 K/mm3 (0-0.3); Eosinophils Percent Auto 3.7 % (0-4.4); Hematocrit 37.7 % (42.0-52.0); Hemoglobin 10.6 g/dL (14.0-18.0); Immature Granulocyte Absolute 0.03 K/mm3 (0.00-0.031); Immature Granulocyte Percent A 0.3 % (0-0.5); Lymphocytes Absolute Auto 2.77 K/mm3 (0.9-3.2); Lymphocytes Percent Auto 24.4 % (18.3-44.2); Mean Corpuscular HGB Conc 28.1 g/dl (32-36); Mean Corpuscular Hemoglobin 25.2 pg (26-34); Mean Corpuscular Volume 89.8 fl (80-100); Mean Platelet Volume 10.5 fl (7.4-10.4); Monocytes Percent Auto 8.6 % (2.6-8.5); Neutrophils Absolute Auto 7.1 K/mm3 (1.3-6.7); Neutrophils Percent Auto 62.4 % (45.5-73.1); Platelet Count Result 440 k/mm3 (150-375); Red Cell Distribution Width 15.1 % (11.5-14.5); White Blood Count 11.4 K/mm3 (4.5-10.0)
[2023-08-13 10:10] LABS: Alanine Aminotransferase 47 U/L (6-50); Albumin Level 4.4 g/dL (3.5-5.1); Alkaline Phosphatase 106 U/L (38-126); Amylase 186 U/L (30-110); Anion Gap 14 mmol/L (8-16); Aspartate Amino Transferase 30 U/L (17-59); Bilirubin,Total 0.6 mg/dL (0.2-1.3); Blood Urea Nitrogen 50 mg/dL (9-20); Calcium 10.5 mg/dL (8.4-10.2); Carbon Dioxide 21 mmol/L (22-30); Chloride 105 mmol/L (98-107); Estimated Glomerular Filt Rate 21; Glucose 201 mg/dL (65-110); Lipase 1912 U/L (23-300); Potassium 5.5 mmol/L (3.4-5.0); Sodium 140 mmol/L (137-145)
== END 2023-08-13 08:44 | disposition home or self-care (01) ==
LOC: ANHLAB 08:44
PROVIDERS: PCP Family Medicine; Visit Provider Family Medicine
DX: D72.829 Elevated white blood cell count, unspecified (principal); K85.90 Acute pancreatitis without necrosis or infection, unspecified; N17.9 Acute kidney failure, unspecified
CPT/HCPCS: 36415; 80053; 82150; 83690; 85025

== ENCOUNTER 2023-08-14 17:21 | Outpatient (CLI) | payer BC, SELFPAY ==
[2023-08-14 17:37] LABS: Basophils Absolute Auto 0.1 K/mm3 (0.0-0.1); Basophils Percent Auto 0.5 % (0.2-1.2); Eosinophils Absolute Auto 0.3 K/mm3 (0-0.3); Eosinophils Percent Auto 2.3 % (0-4.4); Hematocrit 35.8 % (42.0-52.0); Hemoglobin 10.2 g/dL (14.0-18.0); Immature Granulocyte Absolute 0.05 K/mm3 (0.00-0.031); Immature Granulocyte Percent A 0.4 % (0-0.5); Lymphocytes Percent Auto 20.4 % (18.3-44.2); Mean Corpuscular HGB Conc 28.5 g/dl (32-36); Mean Corpuscular Hemoglobin 25.4 pg (26-34); Mean Corpuscular Volume 89.1 fl (80-100); Mean Platelet Volume 10.4 fl (7.4-10.4); Monocytes Percent Auto 7.5 % (2.6-8.5); Neutrophils Absolute Auto 8.8 K/mm3 (1.3-6.7); Neutrophils Percent Auto 68.9 % (45.5-73.1); Platelet Count Result 412 k/mm3 (150-375); Red Blood Count 4.02 M/mm3 (4.6-6.20); Red Cell Distribution Width 15.1 % (11.5-14.5); White Blood Count 12.8 K/mm3 (4.5-10.0)
[2023-08-14 17:48] LABS: Alanine Aminotransferase 39 U/L (6-50); Albumin Level 4.5 g/dL (3.5-5.1); Alkaline Phosphatase 99 U/L (38-126); Anion Gap 21 mmol/L (8-16); Aspartate Amino Transferase 28 U/L (17-59); Bilirubin,Total 0.5 mg/dL (0.2-1.3); Blood Urea Nitrogen 56 mg/dL (9-20); Calcium 10.4 mg/dL (8.4-10.2); Carbon Dioxide 16 mmol/L (22-30); Chloride 102 mmol/L (98-107); Estimated Glomerular Filt Rate 9; Glucose 160 mg/dL (65-110); Potassium 5.9 mmol/L (3.4-5.0); Sodium 139 mmol/L (137-145)
[2023-08-14 17:50] LABS: Hypochromasia 1+ (NORMAL); Ovalocytes 1+ (NORMAL); Platelet Estimate Increased (Adequate); Schistocytes None Seen (NORMAL)
[2023-08-14 18:07] LABS: Lipase 2219 U/L (23-300)
== END 2023-08-14 17:22 | disposition home or self-care (01) ==
LOC: ANHLAB 17:22
PROVIDERS: PCP Family Medicine; Visit Provider Physician Assistant
DX: E87.8 Other disorders of electrolyte and fluid balance, not elsewhere classified (principal); K85.90 Acute pancreatitis without necrosis or infection, unspecified
CPT/HCPCS: 36415; 80053; 83690; 85025

== ENCOUNTER 2023-08-15 08:46 | Inpatient (IN) | payer BC, SELFPAY ==
[2023-08-15] VITALS (16 sets, daily range): BP systolic 95–121; BP diastolic 56–70; PULSE 76–105; RESP 15–23; TEMP 36.2–36.3; O2SAT 97–100; BMI 52.9
[2023-08-15] MEDS: LACTATED RINGERS 1,000 ML 999 ML IV CONT ×2 (09:23→11:52)
[2023-08-15 09:27] LABS: Basophils Absolute Auto 0.1 K/mm3 (0.0-0.1); Basophils Percent Auto 0.7 % (0.2-1.2); Eosinophils Absolute Auto 0.5 K/mm3 (0-0.3); Eosinophils Percent Auto 4.2 % (0-4.4); Hematocrit 32.9 % (42.0-52.0); Hemoglobin 9.6 g/dL (14.0-18.0); Immature Granulocyte Absolute 0.03 K/mm3 (0.00-0.031); Immature Granulocyte Percent A 0.3 % (0-0.5); Lymphocytes Absolute Auto 2.07 K/mm3 (0.9-3.2); Lymphocytes Percent Auto 19.4 % (18.3-44.2); Mean Corpuscular HGB Conc 29.2 g/dl (32-36); Mean Corpuscular Hemoglobin 25.6 pg (26-34); Mean Corpuscular Volume 87.7 fl (80-100); Mean Platelet Volume 10.3 fl (7.4-10.4); Monocytes Absolute Auto 0.8 K/mm3 (0.1-0.6); Monocytes Percent Auto 7.2 % (2.6-8.5); Neutrophils Absolute Auto 7.3 K/mm3 (1.3-6.7); Neutrophils Percent Auto 68.2 % (45.5-73.1); Platelet Count Result 365 k/mm3 (150-375); Red Blood Count 3.75 M/mm3 (4.6-6.20); Red Cell Distribution Width 15.1 % (11.5-14.5); White Blood Count 10.7 K/mm3 (4.5-10.0)
[2023-08-15 09:41] LABS: Alanine Aminotransferase 31 U/L (6-50); Albumin Level 4.2 g/dL (3.5-5.1); Alkaline Phosphatase 94 U/L (38-126); Anion Gap 21 mmol/L (8-16); Aspartate Amino Transferase 26 U/L (17-59); Bilirubin,Total 0.6 mg/dL (0.2-1.3); Blood Urea Nitrogen 60 mg/dL (9-20); Carbon Dioxide 14 mmol/L (22-30); Chloride 103 mmol/L (98-107); Estimated CRCL calculation 21 ml/min; Estimated Glomerular Filt Rate 9; Glucose 159 mg/dL (65-110); Potassium 5.1 mmol/L (3.4-5.0); Sodium 138 mmol/L (137-145)
--- NOTE | 2023-08-15 09:45 | ECG_ITS ---
Measurements Intervals [place] Rate: 77 P: 31 [place]: 161 QRS: 0 QRSD: 93 T: 16 QT: 367 QTc: 417 Interpretive Statements SINUS RHYTHM LOW QRS VOLTAGE IN PRECORDIAL LEADS [QRS DEFLECTION < 1.0 mV IN CHEST LEADS] POOR R-WAVE PROGRESSION ABNORMAL ECG COMPARED TO ECG 07/27/2023 21:11:56 NO SIGNIFICANT CHANGES Electronically Signed On 08-15-2023 13:33:37 FIRE HYDRANT MECHANIC by Bucky Meade M.D.
--- NOTE | 2023-08-15 10:07 | ED.RECABL ---
HPI - Recheck/Abnormal Lab/Rx General Chief Complaint: Recheck/Abnormal Lab/Rx Stated Complaint: Abnormal Labs Time Seen by Provider: 08/15/23 09:02 History of Present Illness HPI narrative: Patient sent in by PCP due to worsening kidney function, had been admitted recently after getting COVID and having acute renal failure, and discharged after feeling better, however repeat outpatient labs have been worsening and therefore he was asked to come to the ER. Patient denies any complaints, states that he is feeling great. Related Data Home Medications Medication Instructions Recorded Confirmed atorvastatin 80 mg tablet 80 mg PO QHS 08/11/23 08/11/23 lisinopril 40 mg tablet 40 mg PO DAILY 08/11/23 08/11/23 Allergies Allergy/AdvReac Type Severity Reaction Status Date / Time No Known Allergies Allergy Mild Unverified 08/11/23 16:18 Review of Systems Review of Systems: All systems reviewed & are unremarkable except as noted in HPI and below PMFSH Past Medical History Medical History Essential hypertension Hyperlipemia Morbid obesity with BMI of 50.0-59.9, adult Type 2 diabetes mellitus Surgical History Surgical History No history of previous surgery Family History Family History Father Hypertension Mother Hypertension Lymphoma Social History Social History Social History: The patient lives with his of 19 years. They have 2 sons below the age of 18. He drinks alcohol on occasion in in moderation. He is a lifelong nonsmoker. He denies illicit substance use. 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 Code status: Full code Surrogate decision maker: Smoking status: Never smoker Second hand tobacco smoke exposure: No Alcohol intake: current Drinks per week: 1 Substance use: never Substance use type: does not use Lack of Transportation: No Lack of Food: Never True Current Housing: I Have Housing Concerned About Future Housing: No Difficulty Paying Gas/Electric Bills: No Difficulty Paying for Meds: No Currently Unemployed: No Education: Associate Degree Difficulty w/ Childcare or Family Care: No Living arrangements: with family Occupation/Education: occupation Gender identity (if verbalized by the patient): Male Spiritual care concerns: No Exam Narrative: EXAMINATION OF ORGAN SYSTEMS/BODY AREAS: Constitutional: Vital signs per nursing GENERAL:[No acute distress, non-toxic appearing.] HEAD: Normal with no signs of head trauma. EYES: EOMI, conjunctiva normal ENT: Hearing grossly intact LUNGS: Nonlabored breathing. HEART: [Regular rate and rhythm] ABD: [Soft], [nontender to palpation] EXT: Normal range of motion SKIN: [No rashes or lesions.] NEURO: [Alert and oriented x 3. No gross focal sensory or strength deficits.] PSYCH: Normal affect Course Vital Signs Vital signs: Vital Signs Temperature 97.3 F L 08/15/23 08:48 Pulse Rate 85 08/15/23 08:48 Blood Pressure 121/60 08/15/23 08:48 Pulse Oximetry 100 08/15/23 08:48 Oxygen Delivery Room Air 08/15/23 08:48 Temperature 97.3 F L 08/15/23 08:48 Pulse Rate 81 08/15/23 12:11 Respiratory Rate 20 08/15/23 12:11 Blood Pressure 102/59 L 08/15/23 12:11 Pulse Oximetry 97 08/15/23 12:11 Oxygen Delivery Room Air 08/15/23 08:48 MDM - Recheck/Abnormal Lab/Rx MDM Narrative Medical decision making narrative: 42-year-old male with recent diagnosis/episode of acute renal failure after COVID/pancreatitis which improved, presents today after his PCP told him to go to ER due to rising Cr. It is 6.5 today but K not dangerously high, EKG - 12-Lead: Performed at 1109. Interpreted by me. [Sinus rhythm]. Rate 77. [Normal]
[2023-08-15 10:30] LABS: Platelet Estimate Adequate (Adequate); Schistocytes None Seen (NORMAL)
[2023-08-15 11:59] LABS: Creatine Kinase 120 U/L (55-170); Triglycerides 342 mg/dL (<150)
[2023-08-15] MEDS: LACTATED RINGERS 1,000 ML 150 ML IV CONT (13:15)
[2023-08-15 13:32] LABS: Eosinophil Urine Rare % (None Seen); Urine Eos QC 2nd Tech Confirmed
[2023-08-15 14:25] LABS: Sodium Urine Random 100 meq/L
--- NOTE | 2023-08-15 14:58 | PM.IMHP ---
H&P: HPI History of Present Illness Date/Time: 08/15/23 14:58 Chief Complaint: Abnormal Labs Narrative: 42 y/o M presented here with abnormal labs - creatinine of 3.3 with PMH of recent LEMUEL/CKD, DM2, HTN, and HLD. Patient was recently admitted on 07/28-07/31 for diarrhea x2 days, dehydration, and LEMUEL (creatinine 7.5, baseline 1.45-1.65). Tested positive for COVID as well. He was initially hyperkalemic and acidotic at time of presentation. Nephrology was consulted, patient was fluid resuscitated, and started on bicarb infusion. Creatinine was 1.2 at time of discharge, plan was to Start bicarb p.o., finished antibiotics, and follow up with Nephrology. patient then had follow-up appointment on 08/11 with nephrology. Plan was reduce progression of CKD with blood pressure control, tight glucose control, continuing statin, low-protein diet, and to assess for intact PTH. outpatient lab work revealed creatinine of 3.3 on 08/13 and 7.0 on 08/14. Patient directed to go to the emergency department for further workup. Repeat lab work today showed creatinine of 6.5. patient reports he has been feeling well other than some mild shortness of breath with activity, does not occur at rest. PE was ruled out outpatient. Reports well-controlled blood sugar, recently been running 140-160's. recent medication changes include discontinuation of lisinopril yesterday and he is no longer on metformin. No other complaints at this time. Review of Systems Review of Systems: All systems reviewed & are unremarkable except as noted in HPI and below [facility] Past Medical History Medical History (Updated 08/15/23 @ 23:02 by Sonya Ferreira APRN) Hyperlipemia Hypertension Morbid obesity with BMI of 50.0-59.9, adult Stage 3a chronic kidney disease Type 2 diabetes mellitus Surgical History Surgical History No history of previous surgery Family History Family History Father Hypertension Mother Hypertension Lymphoma Social History Social History Social History: The patient lives with his of 19 years. They have 2 sons below the age of 18. He drinks alcohol on occasion in in moderation. He is a lifelong nonsmoker. He denies illicit substance use. 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 Code status: Full code Surrogate decision maker: Smoking status: Never smoker Second hand tobacco smoke exposure: No Alcohol intake: current Drinks per week: 1 Substance use: never Substance use type: does not use Lack of Transportation: No Lack of Food: Never True Current Housing: I Have Housing Concerned About Future Housing: No Difficulty Paying Gas/Electric Bills: No Difficulty Paying for Meds: No Currently Unemployed: No Education: Associate Degree Difficulty w/ Childcare or Family Care: No Living arrangements: with family Occupation/Education: occupation Gender identity (if verbalized by the patient): Male Spiritual care concerns: No Meds Home Medications and Allergies Home Medications Medication Instructions Recorded Confirmed Type blood-glucose meter (Blood Glucose #1 ea 08/15/20 08/15/23 Rx Monitoring kit) lancets #100 ea 08/16/20 08/15/23 Rx aspirin 81 mg tablet,delayed 81 mg PO DAILY #90 tabs 03/29/21 08/15/23 Rx release blood sugar diagnostic (Blood #100 ea 10/28/22 08/15/23 Rx Glucose Test strips) omega 5-nzy-czu-fish oil 100 2 cap PO QHS #60 caps 11/08/22 08/15/23 Rx mg-160 mg-1,000 mg capsule (Fish Oil) amlodipine 10 mg tablet 10 mg PO DAILY #90 tabs 12/09/22 08/15/23 Rx hydrochlorothiazide 25 mg tablet 25 mg PO DAILY #90 tabs 04/15/23 08/15/23 Rx omeprazole 40 mg capsule,delayed 40 mg PO DAILY #90 caps 04/15/23 08/15/23 Rx release empagliflozin 25 mg tablet 25 mg PO DAILY
[2023-08-15] MEDS: SODIUM BICARBONATE TAB 650 MG TABLET 1300 MG PO (17:16)
[2023-08-15 17:21] LABS: Glucose Point of Care 125 mg/dl (65-105)
[2023-08-15] MEDS: ATORVASTATIN 40 MG TABLET 80 MG PO (20:16)
[2023-08-15] MEDS: traMADol HCL (*CRX) 50 MG TABLET PO (20:19)
[2023-08-15 20:41] LABS: Glucose Point of Care 163 mg/dl (65-105)
[2023-08-15] MEDS: HEPARIN SODIUM 5,000 UNITS/ML VIAL 5000 UNITS SUB-Q (23:58)
[2023-08-16 00:20] LABS: Lactic Acid Reflex 0.7 mmol/L (0.7-2.0)
[2023-08-16] MEDS: LACTATED RINGERS 1,000 ML 100 ML IV CONT ×2 (00:30→09:15)
[2023-08-16 00:55] LABS: Alanine Aminotransferase 27 U/L (6-50); Albumin Level 3.9 g/dL (3.5-5.1); Alkaline Phosphatase 89 U/L (38-126); Anion Gap 15 mmol/L (8-16); Aspartate Amino Transferase 28 U/L (17-59); Bilirubin,Total 0.5 mg/dL (0.2-1.3); Blood Urea Nitrogen 49 mg/dL (9-20); Calcium 9.7 mg/dL (8.4-10.2); Carbon Dioxide 16 mmol/L (22-30); Chloride 106 mmol/L (98-107); Estimated CRCL calculation 34 ml/min; Estimated Glomerular Filt Rate 16; Glucose 126 mg/dL (65-110); Potassium 4.8 mmol/L (3.4-5.0); Sodium 137 mmol/L (137-145)
[2023-08-16 01:44] LABS: Appearance Urine Clear (Clear); Bacteria Urine None Seen /hpf; Bilirubin Urine Negative (Negative); Blood Urine Trace (Negative); Color Urine Yellow (Yellow); Glucose Urine UA Trace mg/dL (Negative); Ketones Urine Negative (Negative); Leukocyte Esterase Ur Negative LEU/UL (Negative); Nitrate Urine Negative (Negative); Non Pathogenic Casts 0-2; Protein Urine 1+ mg/dL (Negative); RBC Urine 0-2 /hpf (0-2); Specific Grav Ur 1.018 (1.001-1.035); Squamous Epithelial Cell Urine None seen /hpf (Few); Urobilinogen Urine 0.2 mg/dL (<2.0); WBC Urine 0-5 /hpf
[2023-08-16 02:01] LABS: Add Urine Microscopic? YES
[2023-08-16 05:55] VITALS: BP 117/56; PULSE 98; RESP 16; TEMP 36.5; O2SAT 97
[2023-08-16 07:09] LABS: Alanine Aminotransferase 25 U/L (6-50); Albumin Level 3.9 g/dL (3.5-5.1); Alkaline Phosphatase 90 U/L (38-126); Anion Gap 15 mmol/L (8-16); Aspartate Amino Transferase 21 U/L (17-59); Bilirubin,Total 0.5 mg/dL (0.2-1.3); Blood Urea Nitrogen 43 mg/dL (9-20); Calcium 9.7 mg/dL (8.4-10.2); Carbon Dioxide 16 mmol/L (22-30); Chloride 107 mmol/L (98-107); Cholesterol 157 mg/dL (0-200); Estimated CRCL calculation 43 ml/min; Estimated Glomerular Filt Rate 21; Glucose 135 mg/dL (65-110); HDL Direct 23 mg/dL; Lipase 1341 U/L (23-300); Potassium 4.6 mmol/L (3.4-5.0); Sodium 138 mmol/L (137-145); Triglycerides 276 mg/dL (<150)
[2023-08-16 07:18] LABS: NT Pro B Type Natriuretic Pept 207 pg/mL (19.9-100)
[2023-08-16 07:21] LABS: LDL Cholesterol Direct 79 mg/dL
[2023-08-16 07:26] LABS: Glucose Point of Care 126 mg/dl (65-105)
[2023-08-16 08:00] LABS: Hemoglobin 8.8 g/dL (14.0-18.0); Mean Corpuscular HGB Conc 29.3 g/dl (32-36); Mean Corpuscular Hemoglobin 25.5 pg (26-34); Mean Platelet Volume 11.1 fl (7.4-10.4); Platelet Count Result 310 k/mm3 (150-375); Red Blood Count 3.45 M/mm3 (4.6-6.20); Red Cell Distribution Width 15.1 % (11.5-14.5); White Blood Count 7.9 K/mm3 (4.5-10.0)
--- NOTE | 2023-08-16 08:10 | P.PNIM_ITS ---
Progress Note: A&P Assessment and Plan (1) Acute kidney injury superimposed on chronic kidney disease: Code(s): N17.9 - Acute kidney failure, unspecified; N18.9 - Chronic kidney disease, unspecified Status: Acute Assessment and Plan: 08/15/23: * recent LEMUEL superimposed on CKD w/admission, baseline prior was 1.45-1.65 and peak was 7.5. discharged with clinical case manager of 1.2. here due to clinical case manager elevation, currently 6.5. nephrology consulted for further recommendations. given LR x2L, then 800 mLs at 150 mL/hr. further fluids held. monitor I&Os. oral bicarb continued. mild hyperkalemia - 5.1, treated with fluids and will reassess. renal US and CT abd/pelvis performed during previous admission which were unremarkable for renal pathology. Chest CTA on 08/12 showed cortical thinning of the kidneys. there are stones in the kidneys measuring up to 9 mm on the right. continue to monitor renal function and electrolytes. netezza architect consulted for recommendations for DM/CKD diet. 08/16/23: * BUN 43, creatinine down to 3.20 * Bicarb level 16, continue with oral bicarb * Nephrology consulted * Advance diet as tolerated to DM diet (2) Type 2 diabetes mellitus: Qualifiers: Chronic kidney disease stage: stage 3 (moderate) Chronic kidney disease stage 3 subtype: stage 3a (GFR 45-59) Diabetes mellitus complication detail: with chronic kidney disease Diabetes mellitus complication status: with kidney complications Diabetes mellitus retirement insulin use: with tank terminal gauger use Qualified Code(s): E11.22 - Type 2 diabetes mellitus with diabetic chronic kidney disease; N18.31 - Chronic kidney disease, stage 3a; Z79.4 - tank terminal gauger (current) use of insulin Code(s): E11.9 - Type 2 diabetes mellitus without complications Status: Acute Assessment and Plan: 08/15/23: hypoglycemia protocol, POC blood glucose ACHS, home medications held/modified - Jardiance held, Lantus reduced from 45 -> 36 per DM educator recommendation, correct regimen ordered - low dose TIDWM and HS, A1C 8.4 on 07/29, art educator consulted - patient provided with further education due to lack of information provided previously and at time of diagnosis. netezza architect consulted for recommendations for DM/CKD diet. continue to monitor. 08/16/23: * BG ranging 126-190 * Last Hgb A1C 8.4 on 07/29/23 * coding educator consulted * Lipase level 1341, possibly from Metformin or HCTZ however Calcium is 9.7? He has had elevated lipase levels in the past month per EMR record * Continue with accu checks and SSI * Will keep Lantus dose at 36u tonight * Continue low dose SSI with meals and HS * Started on DM diet today * Continue to hold Metformin and Jardiance * Reporting pain in his feet, [place] 1-2 tabs ordered p.r.n. pain, we will check a uric acid level as he was concerns for gout however this might just be related to his uncontrolled type 2 DM. (3) Elevated lipase: Code(s): R74.8 - Abnormal levels of other serum enzymes Status: Acute Assessment and Plan: 08/15/23: lipase has been elevated since 07/27. Initially 4,329. Ranged from 11,659- 1,912. Chest CTA on 08/12 showed fat stranding around the pancreas, consistent with pancreatitis that had worsened since imaging on 07/27. no current abdominal pain, steatorrhea, anorexia, or N/V. continue to trend. 08/16/23: * Lipase level 1341, patient asymptomatic for pancreatitis * Triglyceride level 276 * Will increase diet as tolerated (4) Hyperlipemia: Qualifiers: Hyperlipidemia type: mixed hyperlipidemia Qualified Code(s): E78.2 - Mixed hyperlipidemia Code(s): E78.5 - Hyp
--- NOTE | 2023-08-16 08:10 | PM.IMPN ---
Progress Note: A&P Assessment and Plan (1) Acute kidney injury superimposed on chronic kidney disease: Code(s): N17.9 - Acute kidney failure, unspecified; N18.9 - Chronic kidney disease, unspecified Status: Acute Assessment and Plan: 08/15/23: recent LEMUEL superimposed on CKD w/admission, baseline prior was 1.45-1.65 and peak was 7.5. discharged with hadoop consultant of 1.2. here due to hadoop consultant elevation, currently 6.5. nephrology consulted for further recommendations. given LR x2L, then 800 mLs at 150 mL/hr. further fluids held. monitor I&Os. oral bicarb continued. mild hyperkalemia - 5.1, treated with fluids and will reassess. renal US and CT abd/pelvis performed during previous admission which were unremarkable for renal pathology. Chest CTA on 08/12 showed cortical thinning of the kidneys. there are stones in the kidneys measuring up to 9 mm on the right. continue to monitor renal function and electrolytes. coal hiker consulted for recommendations for DM/CKD diet. 08/16/23: BUN 43, creatinine down to 3.20 Bicarb level 16, continue with oral bicarb Nephrology consulted Advance diet as tolerated to DM diet (2) Type 2 diabetes mellitus: Qualifiers: Chronic kidney disease stage: stage 3 (moderate) Chronic kidney disease stage 3 subtype: stage 3a (GFR 45-59) Diabetes mellitus complication detail: with chronic kidney disease Diabetes mellitus complication status: with kidney complications Diabetes mellitus long-term insulin use: with long-term use Qualified Code(s): E11.22 - Type 2 diabetes mellitus with diabetic chronic kidney disease; N18.31 - Chronic kidney disease, stage 3a; Z79.4 - moth exterminator (current) use of insulin Code(s): E11.9 - Type 2 diabetes mellitus without complications Status: Acute Assessment and Plan: 08/15/23: hypoglycemia protocol, POC blood glucose ACHS, home medications held/modified - Jardiance held, Lantus reduced from 45 -> 36 per DM educator recommendation, correct regimen ordered - low dose TIDWM and HS, A1C 8.4 on 07/29, inclusion special educator consulted - patient provided with further education due to lack of information provided previously and at time of diagnosis. coal hiker consulted for recommendations for DM/CKD diet. continue to monitor. 08/16/23: BG ranging 126-190 Last Hgb A1C 8.4 on 07/29/23 health educator consulted Lipase level 1341, possibly from Metformin or HCTZ however Calcium is 9.7? He has had elevated lipase levels in the past month per EMR record Continue with accu checks and SSI Will keep Lantus dose at 36u tonight Continue low dose SSI with meals and HS Started on DM diet today Continue to hold Metformin and Jardiance Reporting pain in his feet, [place] 1-2 tabs ordered p.r.n. pain, we will check a uric acid level as he was concerns for gout however this might just be related to his uncontrolled type 2 DM. (3) Elevated lipase: Code(s): R74.8 - Abnormal levels of other serum enzymes Status: Acute Assessment and Plan: 08/15/23: lipase has been elevated since 07/27. Initially 4,329. Ranged from 11,659-1,912. Chest CTA on 08/12 showed fat stranding around the pancreas, consistent with pancreatitis that had worsened since imaging on 07/27. no current abdominal pain, steatorrhea, anorexia, or N/V. continue to trend. 08/16/23: Lipase level 1341, patient asymptomatic for pancreatitis Triglyceride level 276 Will increase diet as tolerated (4) Hyperlipemia: Qualifiers: Hyperlipidemia type: mixed hyperlipidemia Qualified Code(s): E78.2 - Mixed hyperlipidemia Code(s): E78.5 - Hyperlipidemia, unspecified Status: Acute Assessment and Plan: 08/15/23: triglycerides 342 on 08/15. last lipid panel on 12/23/22, will add lipid panel to AM labs. continue home atorvastatin 80 mg PO. 08/16/23: Triglycerides 276, Cholesterol 157, LDL 79< HDL 23 No change to current treatment plan (5) Hypertension: Qualifiers:
[2023-08-16] MEDS: HEPARIN SODIUM 5,000 UNITS/ML VIAL 5000 UNITS SUB-Q ×2 (09:15→20:32)
[2023-08-16] MEDS: amLODIPine BESYLATE 5 MG TABLET 10 MG PO (09:15)
[2023-08-16] MEDS: SODIUM BICARBONATE TAB 650 MG TABLET 1300 MG PO ×2 (09:16→16:44)
[2023-08-16] MEDS: ASPIRIN 81 MG ENTERIC TABLET PO (09:16)
[2023-08-16 09:17] VITALS: PULSE 96
[2023-08-16] MEDS: METOPROLOL SUCCINATE EXT REL 50 MG TABCR 150 MG PO (09:17)
[2023-08-16] MEDS: PANTOPRAZOLE 40 MG TABLET PO (09:18)
[2023-08-16 11:29] LABS: Glucose Point of Care 190 mg/dl (65-105)
--- NOTE | 2023-08-16 12:30 | P.CONNP_ITS ---
Assessment and Plan Assessment and plan (1) LEMUEL (acute kidney injury): Code(s): N17.9 - Acute kidney failure, unspecified Status: Resolved Assessment and Plan: * repeat insult likely due to a combination of contrast nephropathy/exposure in the context of use of CONCHITA-I, diuretics (HCTZ), and metformin * given improvement witn IVFs, may have been a pre-renal component as well * previous imaging to date noted (CT scan, renal ultrasound...etc) * s/p IVF resuscitation * hold off on further testing (repeat imaging, urine electrolytes...etc) given improvement to date * follow trend of repeat labs and UOP (2) Stage 3a chronic kidney disease: Code(s): N18.31 - Chronic kidney disease, stage 3a Status: Inactive Assessment and Plan: * baseline creatinine seems to run 1.4 - 1.6mg/dl * presumably due to hypertension and diabetes (3) Metabolic acidosis: Code(s): E87.20 - Acidosis, unspecified Status: Acute Assessment and Plan: * * presumably LEMUEL/ARF and possibly by previous metformin use * on oral sodium bicarbonate * follow repeat labs (4) Elevated lipase: Code(s): R74.8 - Abnormal levels of other serum enzymes Status: Acute Assessment and Plan: * notef elevated lipase and imaging to date * however, no clinical symptoms at this time with regard to pancreatitis * continue supportive therapy (5) Hypertension: Qualifiers: Hypertension type: essential hypertension Qualified Code(s): I10 - Essential (primary) hypertension Code(s): I10 - Essential (primary) hypertension Status: Chronic Assessment and Plan: * reasonable control * holding HCTZ and lisinopril due to #1 * follow trend of hemodyanmics (6) Type 2 diabetes mellitus: Qualifiers: Diabetes 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 insulin use: with custodial use Diabetes mellitus complication status: with kidney complications Diabetes mellitus complication detail: with chronic kidney disease Chronic kidney disease stage: stage 3 (moderate) Chronic kidney disease stage 3 subtype: stage 3a (GFR 45-59) Qualified Code(s): E11.22 - Type 2 diabetes mellitus with diabetic chronic kidney disease; N18.31 - Chronic kidney disease, stage 3a; Z79.4 - manager intermediate (current) use of insulin Code(s): E11.9 - Type 2 diabetes mellitus without complications Status: Chronic Assessment and Plan: * follow accu-cheks * holding metformin * glycemic control per hospitalists Long extensive discussion (> 25 minutes) with both the patient as well as hers at bedside regarding the clinical issues/ problems that led to his readmission at this time. His renal function is already improving with ongoing supportive therapy and my hope is that it will continue to do so back to his baseline creatinine. They both appeared to voice understanding. I would not necessarily be opposed to discharge tomorrow if his renal function continues to improve and he is otherwise medically stable; would probably hold metformin and HCTZ along with lisinopril on discharge with ultimate plan to resume CONCHITA-I at a later date. I will continue to follow the patient with you while he remains hospitalized make further recommendations as needed. Thank you for allowing me to participate in the care of this patient. History of Present Illness Reason for Consult Consult date: 08/16/23 Reason for consult: acute renal failure (on chronic kidney disease) Chief Complaint Chief complaint: Elevated CR History of Present Illness Narrative: The patient is
--- NOTE | 2023-08-16 12:30 | PM.CNNEP ---
Assessment and Plan Assessment and plan (1) LEMUEL (acute kidney injury): Code(s): N17.9 - Acute kidney failure, unspecified Status: Resolved Assessment and Plan: repeat insult likely due to a combination of contrast nephropathy/exposure in the context of use of CONCHITA-I, diuretics (HCTZ), and metformin given improvement witn IVFs, may have been a pre-renal component as well previous imaging to date noted (CT scan, renal ultrasound...etc) s/p IVF resuscitation hold off on further testing (repeat imaging, urine electrolytes...etc) given improvement to date follow trend of repeat labs and UOP (2) Stage 3a chronic kidney disease: Code(s): N18.31 - Chronic kidney disease, stage 3a Status: Inactive Assessment and Plan: baseline creatinine seems to run 1.4 - 1.6mg/dl presumably due to hypertension and diabetes (3) Metabolic acidosis: Code(s): E87.20 - Acidosis, unspecified Status: Acute Assessment and Plan: presumably LEMUEL/ARF and possibly by previous metformin use on oral sodium bicarbonate follow repeat labs (4) Elevated lipase: Code(s): R74.8 - Abnormal levels of other serum enzymes Status: Acute Assessment and Plan: notef elevated lipase and imaging to date however, no clinical symptoms at this time with regard to pancreatitis continue supportive therapy (5) Hypertension: Qualifiers: Hypertension type: essential hypertension Qualified Code(s): I10 - Essential (primary) hypertension Code(s): I10 - Essential (primary) hypertension Status: Chronic Assessment and Plan: reasonable control holding HCTZ and lisinopril due to #1 follow trend of hemodyanmics (6) Type 2 diabetes mellitus: Qualifiers: Diabetes mellitus long term care social worker insulin use: with long term care social worker use Diabetes mellitus complication status: with kidney complications Diabetes mellitus complication detail: with chronic kidney disease Chronic kidney disease stage: stage 3 (moderate) Chronic kidney disease stage 3 subtype: stage 3a (GFR 45-59) Qualified Code(s): E11.22 - Type 2 diabetes mellitus with diabetic chronic kidney disease; N18.31 - Chronic kidney disease, stage 3a; Z79.4 - FDC (current) use of insulin Code(s): E11.9 - Type 2 diabetes mellitus without complications Status: Chronic Assessment and Plan: follow accu-cheks holding metformin glycemic control per hospitalists Long extensive discussion (> 25 minutes) with both the patient as well as hers at bedside regarding the clinical issues/ problems that led to his readmission at this time. His renal function is already improving with ongoing supportive therapy and my hope is that it will continue to do so back to his baseline creatinine. They both appeared to voice understanding. I would not necessarily be opposed to discharge tomorrow if his renal function continues to improve and he is otherwise medically stable; would probably hold metformin and HCTZ along with lisinopril on discharge with ultimate plan to resume CONCHITA-I at a later date. I will continue to follow the patient with you while he remains hospitalized make further recommendations as needed. Thank you for allowing me to participate in the care of this patient. History of Present Illness Reason for Consult Consult date: 08/16/23 Reason for consult: acute renal failure (on chronic kidney disease) Chief Complaint Chief complaint: Elevated CR History of Present Illness Narrative: The patient is a 42-year-old male with a past medical history as outlined below who presented to [facility] Emergency room at the behest of his primary care physician for further evaluation of abnormal labs. The patient was just recently admitted/ discharged from [facility] after suffering from acute kidney injury on top of his baseline kidney disease in association with diarrhea, volume
[2023-08-16 14:00] VITALS: BP 118/73; PULSE 91; RESP 18; TEMP 36.2; O2SAT 98
[2023-08-16 15:38] LABS: Uric Acid 13.1 mg/dL (3.5-8.5)
[2023-08-16 16:22] LABS: Glucose Point of Care 161 mg/dl (65-105)
[2023-08-16] MEDS: HYDROcodone/acetaminophen (*CRX) 5-325 MG TABLET PO ×2 (16:48→23:56)
[2023-08-16] MEDS: allopurinoL 50 MG TABLET PO (18:29)
[2023-08-16] MEDS: ATORVASTATIN 40 MG TABLET 80 MG PO (20:22)
[2023-08-16] MEDS: OMEGA 3 POLYUNSAT FATTY ACIDS 1 GM CAP 2 GM PO (20:32)
[2023-08-16] MEDS: INSULIN GLARGINE (*BKC) 100 UNITS/ML 36 UNITS SUB-Q (20:33)
[2023-08-16 20:44] LABS: Glucose Point of Care 136 mg/dl (65-105)
[2023-08-16 21:30] VITALS: BP 117/62; PULSE 84; RESP 14; TEMP 36.1; O2SAT 100
[2023-08-17 05:28] VITALS: BP 107/69; PULSE 88; RESP 13; TEMP 36.3; O2SAT 98
[2023-08-17 07:17] LABS: Glucose Point of Care 129 mg/dl (65-105)
[2023-08-17 07:32] LABS: Alanine Aminotransferase 26 U/L (6-50); Alkaline Phosphatase 81 U/L (38-126); Anion Gap 14 mmol/L (8-16); Aspartate Amino Transferase 36 U/L (17-59); Bilirubin,Total 0.7 mg/dL (0.2-1.3); Blood Urea Nitrogen 25 mg/dL (9-20); Calcium 9.9 mg/dL (8.4-10.2); Carbon Dioxide 17 mmol/L (22-30); Chloride 105 mmol/L (98-107); Estimated CRCL calculation 84 ml/min; Estimated Glomerular Filt Rate 47; Glucose 125 mg/dL (65-110); Lipase 1152 U/L (23-300); Potassium 4.8 mmol/L (3.4-5.0); Sodium 136 mmol/L (137-145); Triglycerides 330 mg/dL (<150)
[2023-08-17 07:43] LABS: Hematocrit 33.8 % (42.0-52.0); Mean Corpuscular HGB Conc 29.6 g/dl (32-36); Mean Corpuscular Hemoglobin 25.6 pg (26-34); Mean Corpuscular Volume 86.7 fl (80-100); Mean Platelet Volume 10.2 fl (7.4-10.4); Platelet Count Result 293 k/mm3 (150-375); Red Cell Distribution Width 14.9 % (11.5-14.5); White Blood Count 6.5 K/mm3 (4.5-10.0)
[2023-08-17 09:17] VITALS: PULSE 94
[2023-08-17] MEDS: allopurinoL 50 MG TABLET PO (09:17)
[2023-08-17] MEDS: HEPARIN SODIUM 5,000 UNITS/ML VIAL 5000 UNITS SUB-Q (09:17)
[2023-08-17] MEDS: SODIUM BICARBONATE TAB 650 MG TABLET 1300 MG PO (09:17)
[2023-08-17] MEDS: amLODIPine BESYLATE 5 MG TABLET 10 MG PO (09:17)
[2023-08-17] MEDS: PANTOPRAZOLE 40 MG TABLET PO (09:17)
[2023-08-17] MEDS: ASPIRIN 81 MG ENTERIC TABLET PO (09:17)
[2023-08-17] MEDS: METOPROLOL SUCCINATE EXT REL 50 MG TABCR 150 MG PO (09:17)
[2023-08-17 11:41] LABS: Glucose Point of Care 196 mg/dl (65-105)
--- NOTE | 2023-08-17 11:48 | P.PNNP_ITS ---
Progress Note: A&P Assessment and Plan (1) LEMUEL (acute kidney injury): Code(s): N17.9 - Acute kidney failure, unspecified Status: Resolved Assessment and Plan: * resolved if not resolving * repeat insult likely due to a combination of contrast nephropathy/exposure in the context of use of CONCHITA-I, diuretics (HCTZ), and metformin * given improvement witn IVFs, may have been a pre-renal component as well * previous imaging to date noted (CT scan, renal ultrasound...etc) * s/p IVF resuscitation * hold off on further testing (repeat imaging, urine electrolytes...etc) given improvement to date * follow trend of repeat labs and UOP (2) Stage 3a chronic kidney disease: Code(s): N18.31 - Chronic kidney disease, stage 3a Status: Inactive Assessment and Plan: * baseline creatinine seems to run 1.4 - 1.6mg/dl * presumably due to hypertension and diabetes (3) Metabolic acidosis: Code(s): E87.20 - Acidosis, unspecified Status: Acute Assessment and Plan: * presumably LEMUEL/ARF and possibly by previous metformin use * on oral sodium bicarbonate * follow repeat labs (4) Elevated lipase: Code(s): R74.8 - Abnormal levels of other serum enzymes Status: Acute Assessment and Plan: * noted elevated lipase and imaging to date * however, no clinical symptoms at this time with regard to pancreatitis * continue supportive therapy (5) Hypertension: Qualifiers: Hypertension type: essential hypertension Qualified Code(s): I10 - Essential (primary) hypertension Code(s): I10 - Essential (primary) hypertension Status: Chronic Assessment and Plan: * reasonable control * holding HCTZ and lisinopril due to #1 * follow trend of hemodyanmics (6) Type 2 diabetes mellitus: Qualifiers: Diabetes mellitus tank terminal gauger insulin use: with prison use Diabetes mellitus complication status: with kidney complications Diabetes mellitus complication detail: with chronic kidney disease Chronic kidney disease stage: stage 3 (moderate) Chronic kidney disease stage 3 subtype: stage 3a (GFR 45-59) Qualified Code(s): E11.22 - Type 2 diabetes mellitus with diabetic chronic kidney disease; N18.31 - Chronic kidney disease, stage 3a; Z79.4 - tank terminal gauger (current) use of insulin Code(s): E11.9 - Type 2 diabetes mellitus without complications Status: Chronic Assessment and Plan: * follow accu-cheks * holding metformin * glycemic control per hospitalists Not opposed to discharge today from renal perspective if he is otherwise medically stable; would hold metformin and HCTZ along with lisinopril on discharge with ultimate plan to resume CONCHITA-I at a later date depending on outpatient blood pressure readings. Recommend repeat blood work in 1 week to ensure renal function is stable -- I can review it and decide if he needs to be seen sooner in my office. Will continue to follow. Subjective Date/time seen: 08/17/23 11:48 Interval history: Follow-up for acute kidney injury/acute renal failure on chronic kidney disease. Renal function/creatinine is back to baseline by AM labs; he otherwise feels quite well at the time of my visit; no apparent distress voiced; stable hemodynamics with good urine output noted; no issues/events overnight or earlier this morning; at bedside and we discussed the situation. Exam Narrative: General: WD/WN male in NAD Heart: normal S1 and S2; no rub Lungs: clear to auscultation Abdomen: obese
--- NOTE | 2023-08-17 11:48 | PM.PNNEP ---
Progress Note: A&P Assessment and Plan (1) LEMUEL (acute kidney injury): Code(s): N17.9 - Acute kidney failure, unspecified Status: Resolved Assessment and Plan: resolved if not resolving repeat insult likely due to a combination of contrast nephropathy/exposure in the context of use of CONCHITA-I, diuretics (HCTZ), and metformin given improvement witn IVFs, may have been a pre-renal component as well previous imaging to date noted (CT scan, renal ultrasound...etc) s/p IVF resuscitation hold off on further testing (repeat imaging, urine electrolytes...etc) given improvement to date follow trend of repeat labs and UOP (2) Stage 3a chronic kidney disease: Code(s): N18.31 - Chronic kidney disease, stage 3a Status: Inactive Assessment and Plan: baseline creatinine seems to run 1.4 - 1.6mg/dl presumably due to hypertension and diabetes (3) Metabolic acidosis: Code(s): E87.20 - Acidosis, unspecified Status: Acute Assessment and Plan: presumably LEMUEL/ARF and possibly by previous metformin use on oral sodium bicarbonate follow repeat labs (4) Elevated lipase: Code(s): R74.8 - Abnormal levels of other serum enzymes Status: Acute Assessment and Plan: noted elevated lipase and imaging to date however, no clinical symptoms at this time with regard to pancreatitis continue supportive therapy (5) Hypertension: Qualifiers: Hypertension type: essential hypertension Qualified Code(s): I10 - Essential (primary) hypertension Code(s): I10 - Essential (primary) hypertension Status: Chronic Assessment and Plan: reasonable control holding HCTZ and lisinopril due to #1 follow trend of hemodyanmics (6) Type 2 diabetes mellitus: Qualifiers: Diabetes mellitus custodial insulin use: with glass selector use Diabetes mellitus complication status: with kidney complications Diabetes mellitus complication detail: with chronic kidney disease Chronic kidney disease stage: stage 3 (moderate) Chronic kidney disease stage 3 subtype: stage 3a (GFR 45-59) Qualified Code(s): E11.22 - Type 2 diabetes mellitus with diabetic chronic kidney disease; N18.31 - Chronic kidney disease, stage 3a; Z79.4 - [facility] (current) use of insulin Code(s): E11.9 - Type 2 diabetes mellitus without complications Status: Chronic Assessment and Plan: follow accu-cheks holding metformin glycemic control per hospitalists Not opposed to discharge today from renal perspective if he is otherwise medically stable; would hold metformin and HCTZ along with lisinopril on discharge with ultimate plan to resume CONCHITA-I at a later date depending on outpatient blood pressure readings. Recommend repeat blood work in 1 week to ensure renal function is stable -- I can review it and decide if he needs to be seen sooner in my office. Will continue to follow. Subjective Date/time seen: 08/17/23 11:48 Interval history: Follow-up for acute kidney injury/acute renal failure on chronic kidney disease. Renal function/creatinine is back to baseline by AM labs; he otherwise feels quite well at the time of my visit; no apparent distress voiced; stable hemodynamics with good urine output noted; no issues/events overnight or earlier this morning; at bedside and we discussed the situation. Exam Narrative: General: WD/WN male in NAD Heart: normal S1 and S2; no rub Lungs: clear to auscultation Abdomen: obese but nontender, nondistended, positive bowel sounds Extremities: no cyanosis or clubbing; no edema Skin: warm and dry Objective Data Vital Signs Vital Signs: Vital Signs Temp Pulse Resp BP Pulse Ox O2 Del Method 08/17/23 09:15 Room Air 08/17/23 09:17 94 08/17/23 05:28 97.3 F L 88 13 107/69 98 08/16/23 21:30 97.0 F L 84 14 117/62 100 Intake/Output Intake/Output: Intake & Out
--- NOTE | 2023-08-17 14:10 | PM.IMPN ---
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: with termite inspector use Qualified Code(s): E11.22 - Type 2 diabetes mellitus with diabetic chronic kidney disease; N18.31 - Chronic kidney disease, stage 3a; Z79.4 - group home (current) use of insulin Code(s): E11.9 - Type 2 diabetes mellitus without complications Status: Chronic (3) Elevated lipase: Code(s): R74.8 - Abnormal levels of other serum enzymes Status: Acute (4) Hyperlipemia: Qualifiers: Hyperlipidemia type: mixed hyperlipidemia Qualified Code(s): E78.2 - Mixed hyperlipidemia Code(s): E78.5 - Hyperlipidemia, unspecified Status: Acute (5) Hypertension: Qualifiers: Hypertension type: essential hypertension Qualified Code(s): I10 - Essential (primary) hypertension Code(s): I10 - Essential (primary) hypertension Status: Chronic Time Spent With Patient Time with patient: Greater than 35 minutes Subjective Date/time seen: 08/17/23 14:10 Interval history: This is a 42 year old male who presented to the hospital on 08/15/23 with abnormal labs. Patient was recently admitted on 07/28-07/31 for diarrhea x2 days, dehydration, and LEMUEL. He also had COVID as well. He was started on bicarb infusion at that time per Nephrology. Upon discharge his creatinine was back down to 1.2. His initial creatinine was 7.0 and potassium was 5.1. Work up in hospital included a chest CTA which was negative for pulmonary emboli but also showed acute interstitial pancreatitis with worsening since 07/27/2023. UA shown 1+ Protein, trace glucose, otherwise negative. Patient was started on oral bicarb tabs and IV fluids. Nephrology was consulted. On examination today patient is alert and oriented x3, lying in the bed. He denies any nausea, vomiting, diarrhea, abdominal pain, fever, chills, shortness of breath, chest pain. His vital signs are stable, he is afebrile, is on room air. He denies any pain at this time. Labs today revealed WBC 6.5, hemoglobin 10.0, hematocrit 33.8, sodium 136, potassium 4.8, bicarb 17, BUN 25, creatinine 1.6, blood sugars ranging 125-196, liver enzymes are normal. Triglycerides 330, lipase 1152. We also checked a uric acid level on him as he is complaining of gout related pain in his feet. Uric acid leve was elevated at 13.1. He was started on renal dose of allopurinol 50 mg daily. He is stable for discharge now that his creatinine is back to baseline. We will continue to hold his Lisinopril, HCTZ, and his metformin at this time. He will need to get labs in 1 week and follow up with his PCP. He will also need to follow up with Nephrology in 2 weeks. Final diagnosis: Acute kidney injury superimposed on chronic kidney disease. Review of Systems Review of Systems: All systems reviewed & are unremarkable except as noted in HPI and below Constitutional: Constitutional: Reports as per HPI and Reports no additional constitutional complaints Eyes: Eyes: Reports as per HPI and Reports no additional eye complaints ENT: Reports system reviewed and no additional complaints, except as documented and Reports as per HPI Cardiovascular: Cardiovascular: Reports as per HPI and Reports no additional cardiovascular complaints Respiratory: Respiratory: Reports as per HPI and Reports no additional respiratory complaints Gastrointestinal: Gastrointestinal: Reports as per HPI and Reports no additional gastrointestinal complaints
--- NOTE | 2023-08-20 00:15 | PM.DS ---
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 insulin use: with nursing home use Diabetes mellitus complication status: with kidney complications Diabetes mellitus complication detail: with chronic kidney disease Chronic kidney disease stage: stage 3 (moderate) Chronic kidney disease stage 3 subtype: stage 3a (GFR 45-59) Qualified Code(s): E11.22 - Type 2 diabetes mellitus with diabetic chronic kidney disease; N18.31 - Chronic kidney disease, stage 3a; Z79.4 - termite control representative (current) use of insulin Code(s): E11.9 - Type 2 diabetes mellitus without complications Status: Chronic (3) Elevated lipase: Code(s): R74.8 - Abnormal levels of other serum enzymes Status: Acute (4) Hyperlipemia: Qualifiers: Hyperlipidemia type: mixed hyperlipidemia Qualified Code(s): E78.2 - Mixed hyperlipidemia Code(s): E78.5 - Hyperlipidemia, unspecified Status: Acute (5) Hypertension: Qualifiers: Hypertension type: essential hypertension Qualified Code(s): I10 - Essential (primary) hypertension Code(s): I10 - Essential (primary) hypertension Status: Chronic DS: Summary Hospital Course Reason for hospitalization: LEMUEL superimposed on chronic kidney disease Type 2 DM Hospital Course: This is a 42 year old male who presented to the hospital on 08/15/23 with abnormal labs. Patient was recently admitted on 07/28-07/31 for diarrhea x2 days, dehydration, and LEMUEL. He also had COVID as well. He was started on bicarb infusion at that time per Nephrology. Upon discharge his creatinine was back down to 1.2. His initial creatinine was 7.0 and potassium was 5.1. Work up in hospital included a chest CTA which was negative for pulmonary emboli but also showed acute interstitial pancreatitis with worsening since 07/27/2023. UA shown 1+ Protein, trace glucose, otherwise negative. Patient was started on oral bicarb tabs and IV fluids. Nephrology was consulted. On examination today patient is alert and oriented x3, lying in the bed. He denies any nausea, vomiting, diarrhea, abdominal pain, fever, chills, shortness of breath, chest pain. His vital signs are stable, he is afebrile, is on room air. He denies any pain at this time. Labs today revealed WBC 6.5, hemoglobin 10.0, hematocrit 33.8, sodium 136, potassium 4.8, bicarb 17, BUN 25, creatinine 1.6, blood sugars ranging 125-196, liver enzymes are normal. Triglycerides 330, lipase 1152. We also checked a uric acid level on him as he is complaining of gout related pain in his feet. Uric acid leve was elevated at 13.1. He was started on renal dose of allopurinol 50 mg daily. He is stable for discharge now that his creatinine is back to baseline. We will continue to hold his Lisinopril, HCTZ, and his metformin at this time. He will need to get labs in 1 week and follow up with his PCP. He will also need to follow up with Nephrology in 2 weeks. Final diagnosis: LEMUEL superimposed on chronic kidney disease, Gout Status at Discharge Cognitive/behavioral status at discharge: Alert and oriented x3 Functional status at discharge: independent ambulation Overall status at discharge: patient is progressing back to baseline Time Spent with Patient Time attestation: Total time spent providing and/or coordinating discharge services: Time spent: Greater than 30 minutes Exam Narrative: General: In no acute distress, well nourished Head: atraumatic, no encephalopathy Eyes: EOMI, PERRLA, sclera clear ENT: moist mucous membranes, n
== END 2023-08-17 14:55 | disposition home or self-care (01) | DRG 683 ==
LOC: ANHED 09:25 → ANH3MEDSUR 12:36
PROVIDERS: Student in an Organized Health Care Education/Training Program; Admitting Provider Internal Medicine; Emergency Provider Emergency Medicine; PCP Family Medicine; Visit Provider Nurse Practitioner Acute Care
DX: N17.9 Acute kidney failure, unspecified (principal); Z68.43 Body mass index [BMI] 50.0-59.9, adult; E11.22 Type 2 diabetes mellitus with diabetic chronic kidney disease; I12.9 Hypertensive chronic kidney disease with stage 1 through stage 4 chronic kidney disease, or unspecified chronic kidney disease; N18.31 Chronic kidney disease, stage 3a; E78.5 Hyperlipidemia, unspecified; E86.0 Dehydration; M10.9 Gout, unspecified; E66.01 Morbid (severe) obesity due to excess calories; R74.8 Abnormal levels of other serum enzymes; E87.5 Hyperkalemia; Z79.4 Long term (current) use of insulin; Z86.16 Personal history of COVID-19
CPT/HCPCS: 36415; 80053; 80061; 81001; 82550; 82570; 82948; 83605; 83690; 83880; 84300; 84478; 84550; 85025; 85027; 85999; 93005; 96360; 96361; 99285; A9270; J1644; J1815; J7120